=== PATIENT | female | born 1960 | race Two or more races ===

== ENCOUNTER 2018-02-27 14:05 | Inpatient (IN) | payer MEDICARE, OTHER ==
[~2018-02-27] VITALS: Ht 162.6 cm; Wt 123.4 kg
--- NOTE | 2018-02-27 14:18 | Emergency Room Report ---
History of Present Illness General Chief Complaint: Female Urogenital Problems Source: Patient, PMD Present Illness HPI C/o vaginal bleeding from care center. Pt recently increased Eliquis while admitted at [facility] for new PE. Pt had been on same for DVT. Pt complains of lower abdominal pain. NO other complaints. Per PCP, pt with recent Lactobacillus in blood culture at [facility]. Patient History Past Medical History: see triage record Pertinent Family History: none Social History: Denies: smoking, alcohol use, drug use Last Menstrual Period: n/a Nursing Documentation-PMH Hx Hypertension: Yes Hx Asthma: Yes Hx Gastrointestinal Problems: Yes - GERD, dyphagia Review of Systems Constitutional: Reports: no symptoms; Denies: see HPI, chills, sweats, fever, malaise, weakness, other Eye: Denies: no symptoms, see HPI, eye pain, blurred vision, tearing, double vision, nose pain, nose congestion, acuity changes, discharge, other Respiratory: Denies: no symptoms, see HPI, cough, orthopnea, shortness of breath, stridor, wheezing, CHIANG, sputum, other Cardiovascular: Denies: no symptoms, see HPI, chest pain, edema, palpitations, syncope, PND, other Gastrointestinal: Reports: see HPI Genitourinary: Reports: see HPI Musculoskeletal: Denies: no symptoms, see HPI, back pain, gout, joint pain, joint swelling, muscle pain, muscle stiffness, other Skin: Denies: no symptoms, see HPI, rash, change in color, change in hair/nails , dryness, lesions, other Psychiatric: Denies: no symptoms, see HPI, prior hx, anxiety, depressed feelings, emotional problems, SI, HI, hallucinations, other Neurological: Denies: no symptoms, see HPI, headache, numbness, paresthesia, seizure, tingling, tremors, focal weakness, syncope, dizziness, other Allergic: Denies: no symptoms, see HPI, urticaria, hay fever, other Physical Exam Vital Signs Date Time Temp Pulse Resp B/P (MAP) Pulse Ox O2 Delivery O2 Flow Rate FiO2 02/27/18 13:45 97.7 94 18 98/68 97 Room Air 97.7 Sp02 EP Interpretation: reviewed, normal General Appearance: no apparent distress, alert, GCS 15, non-toxic Head: normocephalic, atraumatic Eyes: bilateral eye normal inspection, bilateral eye PERRL ENT: hearing grossly normal, normal pharynx, no angioedema, normal voice Neck: full range of motion, supple/symm/no masses Respiratory: chest non-tender, lungs clear, normal breath sounds, speaking full sentences Cardiovascular #1: regular rate, rhythm, no edema Gastrointestinal: normal inspection, normal bowel sounds, no guarding, no rebound, tenderness - mild TTP lower abd Genitourinary: ext genitalia/vag normal, other - moderate blood in vault without obvious source. No active bleeding. Musculoskeletal: back normal, gait/station normal, normal range of motion, non- tender, calf tenderness Neurologic: alert, responsive, motor strength/tone normal, sensory intact, speech normal Skin: normal color, no rash, warm/dry, well hydrated Lymphatic: no adenopathy Medical Decision Making Diagnostic Impression: Primary Impression: vaginal bleding Additional Impression: Positive blood culture ER Course Pt without obvious source of bleeding but likely related to increase of Eliquis. Pt requires admission to monitor this and also for monitoring of her positive blood cultures from [facility]. Laboratory Tests Test 02/27/18 15:55 02/27/18 15:56 White Blood Count 10.8 K/UL (4.8-10.8) Red Blood Count 4.25 M/UL (4.20-5.40) Hemoglobin 11.2 G/DL (12.0-16.0) L Hematocrit 33.5 % (37.0-47.0) L Mean Corpuscular Volume 79 FL (80-99) L Mean Corpuscular Hemoglobin 26.2 PG (27.0-31.0) L Mean Corpuscular Hemoglobin Concent 33.3 G/DL (32.0-36.0) Red Cell Distribution Width 17.4 % (11.6-14.8) H Platelet Count 233 K/UL (150-450) Mean Platelet Volume 6.0 FL (6.5-10.1) L Neutrophils (%) (Auto) 69.6 % (45.0-75.0) Lymphocytes (%) (Auto) 21.5 % (20.0-45.0) Monocytes (%) (Auto) 7.8 % (1.0-10.0) Eosinophils (%) (Auto) 0.2 % (0.0-3.0) Basophils (%) (Auto) 0.9 % (0.0-2.0) Prothrombin Time 14.6 SEC (9.30-11.50) H Prothromb Time International Ratio 1.4 (0.9-1.1) H Activated Partial Thromboplast Time 35 SEC (23-33) H Sodium Level 141 MMOL/L (136-145) Potassium Level 3.5 MMOL/L (3.5-5.1) Chloride Level 110 MMOL/L (98-107) H Carbon Dioxide Level 27 MMOL/L (21-32) Anion Gap 4 mmol/L (5-15) L Blood Urea Nitrogen 7 mg/dL (7-18) Creatinine 0.6 MG/DL (0.55-1.30) Estimat Glomerular Filtration Rate > 60 mL/min (>60) Glucose Level 94 MG/DL (74-106) Calcium Level 7.5 MG/DL (8.5-10.1) L Total Bilirubin 0.6 MG/DL (0.2-1.0) Aspartate Amino Transf (AST/SGOT) 22 U/L (15-37) Alanine Aminotransferase (ALT/SGPT) 25 U/L (12-78) Alkaline Phosphatase 91 U/L (46-116) Total Protein 5.3 G/DL (6.4-8.2) L Albumin 1.4 G/DL (3.4-5.0) L Globulin 3.9 g/dL Albumin/Globulin Ratio 0.4 (1.0-2.7) L Lipase 65 U/L (73-393) L Urine Color Pale yellow Urine Appearance Cloudy Urine pH 6 (4.5-8.0) Urine Specific [place] 1.030 (1.005-1.035) Urine Protein 2+ (NEGATIVE) H Urine Glucose (UA) Negative (NEGATIVE) Urine Ketones Negative (NEGATIVE) Urine Occult Blood 5+ (NEGATIVE) H Urine Nitrite Negative (NEGATIVE) Urine Bilirubin Negative (NEGATIVE) Urine Urobilinogen Normal MG/DL (0.0-1.0) Urine Leukocyte Esterase 2+ (NEGATIVE) H Urine RBC Tntc /HPF (0 - 2) H Urine WBC 10-15 /HPF (0 - 2) H Urine Squamous Epithelial Cells Few /LPF (NONE/OCC) Urine Bacteria Moderate /HPF (NONE) H CT/MRI/US Diagnostic Results CT/MRI/US Diagnostic Results : Impression no acute findings. see report for other findings Last Vital Signs Date Time Temp Pulse Resp B/P (MAP) Pulse Ox O2 Delivery O2 Flow Rate FiO2 02/27/18 13:45 97.7 94 18 98/68 97 Room Air 97.7 Disposition: ADMITTED INPATIENT TRUNG STEPHEN Feb 27, 2018 14:18
[2018-02-27 15:33] VITALS: BP 98/68
[2018-02-27 16:03] LABS: BASOPHILS % (AUTO) 0.9 % (0.0-2.0); EOSINOPHILS % (AUTO) 0.2 % (0.0-3.0); HEMATOCRIT 33.5 % (37.0-47.0); HEMOGLOBIN 11.2 G/DL (12.0-16.0); LYMPHOCYTES % (AUTO) 21.5 % (20.0-45.0); MEAN CORPUSCULAR VOLUME 79 FL (80-99); MONOCYTES % (AUTO) 7.8 % (1.0-10.0); NEUTROPHILS % (AUTO) 69.6 % (45.0-75.0); PLATELET COUNT 233 K/UL (150-450); RED BLOOD COUNT 4.25 M/UL (4.20-5.40); RED CELL DISTRIBUTION WIDTH 17.4 % (11.6-14.8); WHITE BLOOD COUNT 10.8 K/UL (4.8-10.8)
[2018-02-27 16:07] LABS: APPEARANCE,URINE CLOUDY; BILIRUBIN, URINE NEGATIVE (NEGATIVE); COLOR,URINE PALE YELLOW; GLUCOSE, URINE (UA) NEGATIVE (NEGATIVE); KETONES,URINE NEGATIVE (NEGATIVE); LEUKOCYTE ESTERASE ,URINE 2+ (NEGATIVE); NITRITE,URINE NEGATIVE (NEGATIVE); PH,URINE 6 (4.5-8.0); PROTEIN,URINE 2+ (NEGATIVE); UROBILINOGEN,URINE NORMAL MG/DL (0.0-1.0)
[2018-02-27 16:15] LABS: ANION GAP 4 mmol/L (5-15); BLOOD UREA NITROGEN 7 mg/dL (7-18); CALCIUM 7.5 MG/DL (8.5-10.1); CARBON DIOXIDE 27 MMOL/L (21-32); CHLORIDE 110 MMOL/L (98-107); CREATININE 0.6 MG/DL (0.55-1.30); POTASSIUM 3.5 MMOL/L (3.5-5.1); SODIUM 141 MMOL/L (136-145)
[2018-02-27 16:17] LABS: INR 1.4 (0.9-1.1)
[2018-02-27 16:20] LABS: ALANINE AMINOTRANSFERASE 25 U/L (12-78); ALBUMIN 1.4 G/DL (3.4-5.0); ALBUMIN/GLOBULIN RATIO 0.4 (1.0-2.7); ALKALINE PHOSPHATASE 91 U/L (46-116); ASPARTATE AMINO TRANSFERASE 22 U/L (15-37); BILIRUBIN,TOTAL 0.6 MG/DL (0.2-1.0)
--- NOTE | 2018-02-27 17:02 | Diagnostic Imaging Report ---
Indication: Abdominal pain Technique: Continuous helical transaxial imaging of the abdomen and pelvis was obtained from the lung bases to the pubic symphysis. No intravenous contrast was administered. Coronal 2-D reformats were also obtained. Automatic Exposure Control was utilized. Total Dose length Product (DLP): 1003.[address] Dose Index Volume (CTDIvol): 19.75 mGy Comparison: none Findings: The lung bases are clear. The liver is hypodense consistent with fatty infiltration. Gallstones are suspected. There is a fatty containing mass centered about the ascending colon probably a intramural lipoma and having approximate measurement of 3.5 cm. The appendix is seen and appears normal. There are diverticula throughout the colon. There is no definite evidence of acute diverticulitis. Uterus is noted. No free fluid or free air identified. Within the right lateral aspect of the abdominal wall just above the right iliac crest there is a ovoid fat-containing tumor measuring 8 x 4.5 cm. Consistent with an intramuscular lipoma. There is no nephrolithiasis or hydronephrosis. Several metallic structures noted in the abdomen presumably from previous surgery. IMPRESSION: Cholelithiasis. Correlate clinically for cholecystitis. 3.5 cm lipoma suspected involving the wall the cecum. 8 x 4.5 cm lipoma involving right lateral abdominal wall musculature. Previous abdominal surgery. Colonic diverticulosis. Fatty liver Limited study due to lack of intravenous contrast. The CT scanner at [facility] is accredited by the [employer] and the scans are performed using dose optimization techniques as appropriate to a performed exam including Automatic Exposure control.
[2018-02-27 19:25] VITALS: BP 103/72
[2018-02-27] MEDS ORDERED: PROPRANOLOL HCL20 MG ORAL (19:33)
[2018-02-27] MEDS ORDERED: FUROSEMIDE20 M1 ORAL (19:33)
[2018-02-27 20:54] VITALS: BP 105/68
[2018-02-27 21:50] VITALS: BP 114/69
[2018-02-27] MEDS ORDERED: Acetaminophen 500mg (ES) tab ORAL PRN (22:15)
[2018-02-27] MEDS: Propranolol 40mg tab ORAL SCH (22:30)
[2018-02-27] MEDS: Piperacillin/Tazobactam 3.375 GM in D5W 110 ML IVPB SCH (22:52)
[2018-02-28] VITALS (14 sets, daily range): BP systolic 98–132; BP diastolic 56–76
[2018-02-28] MEDS ORDERED: Phytonadione 10 MG in D5W 55 ML IVPB ONE (04:45)
[2018-02-28] MEDS ORDERED: Phytonadione 10 mg/mL 1ml amp SUBQ ONE (05:00)
[2018-02-28] MEDS: Piperacillin/Tazobactam 3.375 GM in D5W 110 ML IVPB SCH ×3 (05:28→22:02)
[2018-02-28 06:46] LABS: BASOPHILS % (AUTO) 0.7 % (0.0-2.0); EOSINOPHILS % (AUTO) 0.3 % (0.0-3.0); HEMATOCRIT 30.3 % (37.0-47.0); HEMOGLOBIN 9.8 G/DL (12.0-16.0); LYMPHOCYTES % (AUTO) 17.9 % (20.0-45.0); MEAN CORPUSCULAR VOLUME 81 FL (80-99); MONOCYTES % (AUTO) 8.6 % (1.0-10.0); NEUTROPHILS % (AUTO) 72.4 % (45.0-75.0); PLATELET COUNT 241 K/UL (150-450); RED BLOOD COUNT 3.75 M/UL (4.20-5.40); RED CELL DISTRIBUTION WIDTH 17.3 % (11.6-14.8); WHITE BLOOD COUNT 9.6 K/UL (4.8-10.8)
[2018-02-28 06:54] LABS: ALANINE AMINOTRANSFERASE 23 U/L (12-78); ALBUMIN 1.3 G/DL (3.4-5.0); ALBUMIN/GLOBULIN RATIO 0.4 (1.0-2.7); ALKALINE PHOSPHATASE 82 U/L (46-116); ANION GAP 5 mmol/L (5-15); ASPARTATE AMINO TRANSFERASE 21 U/L (15-37); BILIRUBIN,TOTAL 0.7 MG/DL (0.2-1.0); BLOOD UREA NITROGEN 7 mg/dL (7-18); CALCIUM 7.3 MG/DL (8.5-10.1); CARBON DIOXIDE 31 MMOL/L (21-32); CHLORIDE 107 MMOL/L (98-107); CREATININE 0.7 MG/DL (0.55-1.30); POTASSIUM 3.7 MMOL/L (3.5-5.1); SODIUM 143 MMOL/L (136-145)
[2018-02-28 07:35] LABS: FERRITIN 237 NG/ML (8-388); LACTATE DEHYDROGENASE 345 U/L (81-234)
[2018-02-28 07:42] LABS: % IRON SATURATION 58 % (15-50); IRON 42 ug/dL (50-175); TOTAL IRON BINDING CAPACITY 73 ug/dL (250-450)
[2018-02-28 08:19] LABS: INR 1.3 (0.9-1.1)
[2018-02-28] MEDS: Propranolol 40mg tab ORAL SCH ×3 (09:00→18:00)
[2018-02-28] MEDS ORDERED: Lidocaine 1% Plain 30 ml INJ PRN (10:00)
--- NOTE | 2018-02-28 10:41 | Consultation ---
Consult Note Consult Note GYNECOLOGY CONSULT NOTE CC: Vaginal bleeding HPI: Ms. Sparks is a 57yo admitted from the ED with vaginal bleeding and positive blood cultures for lactobacillus. She recently increased her dose of Eliquis for new dx of PE, and was on it previously for DVT. She reports the bleeding has been intermittent, but this is not her normal period. LMP 02/10 or . She still menstruates monthly. The bleeding began after she increased the dose of Eliquis. At times it is heavy, but it will stop and start at random. No pelvic pain. PMH: HTN, DVT dx 1-2mo ago, PE dx 1-2w ago PSH: section 33y ago, no other surgical hx OBHx: - C/S x 1 GYNHx: Last Pap 1y ago, was seen by MANAGER ARCHITECTURAL at [facility] 2-3mo ago but no Pap done. No known hx of abnl Pap, fibroids, or cysts MEDS: Inderall, B6, Lasix, Potassium, ASA (not taking), Eliquis ALLERGIES: NKDA SOCHx: Lives on her own, was working at a [employer], stopped working 1 month ago FAMHx: Paternal side of the family with hx of VTE, VA, CVA, asthma but no malignancy. Maternal side with HTN VITALS: Tmax 98.8, BP 101/56, P 101, RR 17, O2 96-99% RA EXAM: Gen: NAD, morbidly obese HEENT: OP clear Neuro: CN 2-12 intact grossly CV: Tachycardic to low 100s Pulm: Mild increased work of breathing but no dyspnea and able to speak in full sentences Abd: Soft, obese, TTP RLQ > LLQ Pelvic: Perineum with moderate to large amount of dark blood, new bleeding per RN MSK: FROM LABS: Test 02/27/18 15:55 02/27/18 15:56 02/28/18 05:35 White Blood Count 10.8 K/UL (4.8-10.8) 9.6 K/UL (4.8-10.8) Red Blood Count 4.25 M/UL (4.20-5.40) 3.75 M/UL (4.20-5.40) Hemoglobin 11.2 G/DL (12.0-16.0) 9.8 G/DL (12.0-16.0) Hematocrit 33.5 % (37.0-47.0) 30.3 % (37.0-47.0) Mean Corpuscular Volume 79 FL (80-99) 81 FL (80-99) Mean Corpuscular Hemoglobin 26.2 PG (27.0-31.0) 26.2 PG (27.0-31.0) Mean Corpuscular Hemoglobin Concent 33.3 G/DL (32.0-36.0) 32.5 G/DL (32.0-36.0) Red Cell Distribution Width 17.4 % (11.6-14.8) 17.3 % (11.6-14.8) Platelet Count 233 K/UL (150-450) 241 K/UL (150-450) Mean Platelet Volume 6.0 FL (6.5-10.1) 5.9 FL (6.5-10.1) Neutrophils (%) (Auto) 69.6 % (45.0-75.0) 72.4 % (45.0-75.0) Lymphocytes (%) (Auto) 21.5 % (20.0-45.0) 17.9 % (20.0-45.0) Monocytes (%) (Auto) 7.8 % (1.0-10.0) 8.6 % (1.0-10.0) Eosinophils (%) (Auto) 0.2 % (0.0-3.0) 0.3 % (0.0-3.0) Basophils (%) (Auto) 0.9 % (0.0-2.0) 0.7 % (0.0-2.0) Prothrombin Time 14.6 SEC (9.30-11.50) 13.2 SEC (9.30-11.50) Prothromb Time International Ratio 1.4 (0.9-1.1) 1.3 (0.9-1.1) Activated Partial Thromboplast Time 35 SEC (23-33) Sodium Level 141 MMOL/L (136-145) 143 MMOL/L (136-145) Potassium Level 3.5 MMOL/L (3.5-5.1) 3.7 MMOL/L (3.5-5.1) Chloride Level 110 MMOL/L (98-107) 107 MMOL/L (98-107) Carbon Dioxide Level 27 MMOL/L (21-32) 31 MMOL/L (21-32) Anion Gap 4 mmol/L (5-15) 5 mmol/L (5-15) Blood Urea Nitrogen 7 mg/dL (7-18) 7 mg/dL (7-18) Creatinine 0.6 MG/DL (0.55-1.30) 0.7 MG/DL (0.55-1.30) Estimat Glomerular Filtration Rate > 60 mL/min (>60) > 60 mL/min (>60) Glucose Level 94 MG/DL (74-106) 86 MG/DL (74-106) Calcium Level 7.5 MG/DL (8.5-10.1) 7.3 MG/DL (8.5-10.1) Total Bilirubin 0.6 MG/DL (0.2-1.0) 0.7 MG/DL (0.2-1.0) Aspartate Amino Transf (AST/SGOT) 22 U/L (15-37) 21 U/L (15-37) Alanine Aminotransferase (ALT/SGPT) 25 U/L (12-78) 23 U/L (12-78) Alkaline Phosphatase 91 U/L (46-116) 82 U/L (46-116) Total Protein 5.3 G/DL (6.4-8.2) 4.9 G/DL (6.4-8.2) Albumin 1.4 G/DL (3.4-5.0) 1.3 G/DL (3.4-5.0) Globulin 3.9 g/dL 3.6 g/dL Albumin/Globulin Ratio 0.4 (1.0-2.7) 0.4 (1.0-2.7) Lipase 65 U/L (73-393) Urine Color Pale yellow Urine Appearance Cloudy Urine pH 6 (4.5-8.0) Urine Specific [place] 1.030 (1.005-1.035) Urine Protein 2+ (NEGATIVE) Urine Glucose (UA) Negative (NEGATIVE) Urine Ketones Negative (NEGATIVE) Urine Occult Blood 5+ (NEGATIVE) Urine Nitrite Negative (NEGATIVE) Urine Bilirubin Negative (NEGATIVE) Urine Urobilinogen Normal MG/DL (0.0-1.0) Urine Leukocyte Esterase 2+ (NEGATIVE) Urine RBC Tntc /HPF (0 - 2) Urine WBC 10-15 /HPF (0 - 2) Urine Squamous Epithelial Cells Few /LPF (NONE/OCC) Urine Bacteria Moderate /HPF (NONE) Differential Total Cells Counted 100 Neutrophils % (Manual) 81 % (45-75) Lymphocytes % (Manual) 15 % (20-45) Monocytes % (Manual) 4 % (1-10) Eosinophils % (Manual) 0 % (0-3) Basophils % (Manual) 0 % (0-2) Band Neutrophils 0 % (0-8) Platelet Estimate Adequate Platelet Morphology Normal Hypochromasia 2+ Anisocytosis 1+ Fibrinogen 176 mg/dL (200-400) Iron Level 42 ug/dL (50-175) Total Iron Binding Capacity 73 ug/dL (250-450) Percent Iron Saturation 58 % (15-50) Unsaturated Iron Binding 31 ug/dL (112-346) Ferritin 237 NG/ML (8-388) Lactate Dehydrogenase 345 U/L (81-234) Vitamin B12 Level 1141 PG/ML (193-986) Folate 3.1 NG/ML (8.6-58.9) Thyroid Stimulating Hormone (TSH) 0.143 uiU/mL (0.358-3.740) IMAGING: Findings: The lung bases are clear. The liver is hypodense consistent with fatty infiltration. Gallstones are suspected. There is a fatty containing mass centered about the ascending colon probably a intramural lipoma and having approximate measurement of 3.5 cm. The appendix is seen and appears normal. There are diverticula throughout the colon. There is no definite evidence of acute diverticulitis. Uterus is noted. No free fluid or free air identified. Within the right lateral aspect of the abdominal wall just above the right iliac crest there is a ovoid fat-containing tumor measuring 8 x 4.5 cm. Consistent with an intramuscular lipoma. There is no nephrolithiasis or hydronephrosis. Several metallic structures noted in the abdomen presumably from previous surgery. IMPRESSION: - Cholelithiasis. Correlate clinically for cholecystitis. - 3.5 cm lipoma suspected involving the wall the cecum. - 8 x 4.5 cm lipoma involving right lateral abdominal wall musculature. - Previous abdominal surgery. - Colonic diverticulosis. - Fatty liver - Limited study due to lack of intravenous contrast. Assessment/Plan 57yo with intermenstrual bleeding likely secondary to increased dose of anticoagulation - Recommend Provera for bleeding symptoms, will Rx 10mg qday, to be taken for 2weeks - Patient will have a withdrawal bleed when she discontinues the medication, but it can be restarted again if intermenstrual bleeding remains an issue - Anticipate bleeding will subside once Eliquis dose is decreased - Patient developing anemia, recommend iron supplementation - Recommend pelvic US to evaluate endometrium Thank you for this interesting consult Signed: MD Rut Avelar Carla M.D. Feb 28, 2018 10:41
[2018-02-28] MEDS ORDERED: Fluconazole 100mg tab ORAL SCH (11:30)
[2018-02-28] MEDS ORDERED: medroxyPROGESTERone 10mg tab ORAL SCH (11:30)
--- NOTE | 2018-02-28 12:27 | Consultation ---
History of Present Illness General Date patient seen: Feb 28, 2018 Chief Complaint: Female Urogenital Problems Present Illness HPI 57 yo female with hx of anxiety who C/o vaginal bleeding. the pt is anxious and c/o insomnia at time. The pt denied depressive sxs and was not suicidal Allergies: Coded Allergies: NO KNOWN ALLERGIES (Verified Allergy, Unknown, 02/27/18) Medication History Scheduled Furosemide* (Lasix*), 20 MG ORAL BID, (Reported) Propranolol Hcl* (Inderal*), 20 MG ORAL THREE TIMES A DAY, (Reported) Patient History Limited by: medical condition History Provided By: Patient, Medical Record, PMD Healthcare decision maker N Resuscitation status Advanced Directive on File Past Medical/Surgical History Past Medical/Surgical History: (1) Positive blood culture (2) Vaginal bleeding Review of Systems Psychiatric: Reports: prior hx, anxiety, depressed feelings, emotional problems Physical Exam General Appearance: no apparent distress, alert Neurologic: oriented x 3, responsive, depressed affect Last 24 Hour Vital Signs Date Time Temp Pulse Resp B/P (MAP) Pulse Ox O2 Delivery O2 Flow Rate FiO2 02/28/18 09:25 101 101/56 (71) 02/28/18 09:00 101 101/56 02/28/18 08:00 98.0 98 17 98/56 (70) 97 98.0 02/28/18 04:00 98.7 89 18 101/59 (73) 99 98.7 02/28/18 00:00 98.8 93 18 100/56 (71) 96 98.8 02/27/18 22:30 82 108/65 02/27/18 22:00 Room Air 02/27/18 21:50 98.2 92 20 114/69 (84) 98 98.2 02/27/18 21:15 97.8 101 16 105/68 96 Room Air 97.8 02/27/18 20:54 97.8 101 16 105/68 96 Room Air 97.8 02/27/18 19:25 97.9 94 16 103/72 95 Room Air 97.9 02/27/18 15:33 97.7 88 18 98/68 97 Room Air 97.7 02/27/18 13:45 97.7 94 18 98/68 97 Room Air 97.7 Intake and Output 02/27/18 02/28/18 19:00 07:00 Intake Total 257.5 ml Balance 257.5 ml Intake Oral 120 ml IV Total 137.5 ml # Voids 2 Laboratory Tests Test 02/27/18 15:55 02/27/18 15:56 02/28/18 05:35 White Blood Count 10.8 K/UL (4.8-10.8) 9.6 K/UL (4.8-10.8) Red Blood Count 4.25 M/UL (4.20-5.40) 3.75 M/UL (4.20-5.40) L Hemoglobin 11.2 G/DL (12.0-16.0) L 9.8 G/DL (12.0-16.0) L Hematocrit 33.5 % (37.0-47.0) L 30.3 % (37.0-47.0) L Mean Corpuscular Volume 79 FL (80-99) L 81 FL (80-99) Mean Corpuscular Hemoglobin 26.2 PG (27.0-31.0) L 26.2 PG (27.0-31.0) L Mean Corpuscular Hemoglobin Concent 33.3 G/DL (32.0-36.0) 32.5 G/DL (32.0-36.0) Red Cell Distribution Width 17.4 % (11.6-14.8) H 17.3 % (11.6-14.8) H Platelet Count 233 K/UL (150-450) 241 K/UL (150-450) Mean Platelet Volume 6.0 FL (6.5-10.1) L 5.9 FL (6.5-10.1) L Neutrophils (%) (Auto) 69.6 % (45.0-75.0) 72.4 % (45.0-75.0) Lymphocytes (%) (Auto) 21.5 % (20.0-45.0) 17.9 % (20.0-45.0) L Monocytes (%) (Auto) 7.8 % (1.0-10.0) 8.6 % (1.0-10.0) Eosinophils (%) (Auto) 0.2 % (0.0-3.0) 0.3 % (0.0-3.0) Basophils (%) (Auto) 0.9 % (0.0-2.0) 0.7 % (0.0-2.0) Prothrombin Time 14.6 SEC (9.30-11.50) H 13.2 SEC (9.30-11.50) H Prothromb Time International Ratio 1.4 (0.9-1.1) H 1.3 (0.9-1.1) H Activated Partial Thromboplast Time 35 SEC (23-33) H Sodium Level 141 MMOL/L (136-145) 143 MMOL/L (136-145) Potassium Level 3.5 MMOL/L (3.5-5.1) 3.7 MMOL/L (3.5-5.1) Chloride Level 110 MMOL/L (98-107) H 107 MMOL/L (98-107) Carbon Dioxide Level 27 MMOL/L (21-32) 31 MMOL/L (21-32) Anion Gap 4 mmol/L (5-15) L 5 mmol/L (5-15) Blood Urea Nitrogen 7 mg/dL (7-18) 7 mg/dL (7-18) Creatinine 0.6 MG/DL (0.55-1.30) 0.7 MG/DL (0.55-1.30) Estimat Glomerular Filtration Rate > 60 mL/min (>60) > 60 mL/min (>60) Glucose Level 94 MG/DL (74-106) 86 MG/DL (74-106) Calcium Level 7.5 MG/DL (8.5-10.1) L 7.3 MG/DL (8.5-10.1) L Total Bilirubin 0.6 MG/DL (0.2-1.0) 0.7 MG/DL (0.2-1.0) Aspartate Amino Transf (AST/SGOT) 22 U/L (15-37) 21 U/L (15-37) Alanine Aminotransferase (ALT/SGPT) 25 U/L (12-78) 23 U/L (12-78) Alkaline Phosphatase 91 U/L (46-116) 82 U/L (46-116) Total Protein 5.3 G/DL (6.4-8.2) L 4.9 G/DL (6.4-8.2) L Albumin 1.4 G/DL (3.4-5.0) L 1.3 G/DL (3.4-5.0) L Globulin 3.9 g/dL 3.6 g/dL Albumin/Globulin Ratio 0.4 (1.0-2.7) L 0.4 (1.0-2.7) L Lipase 65 U/L (73-393) L Urine Color Pale yellow Urine Appearance Cloudy Urine pH 6 (4.5-8.0) Urine Specific [place] 1.030 (1.005-1.035) Urine Protein 2+ (NEGATIVE) H Urine Glucose (UA) Negative (NEGATIVE) Urine Ketones Negative (NEGATIVE) Urine Occult Blood 5+ (NEGATIVE) H Urine Nitrite Negative (NEGATIVE) Urine Bilirubin Negative (NEGATIVE) Urine Urobilinogen Normal MG/DL (0.0-1.0) Urine Leukocyte Esterase 2+ (NEGATIVE) H Urine RBC Tntc /HPF (0 - 2) H Urine WBC 10-15 /HPF (0 - 2) H Urine Squamous Epithelial Cells Few /LPF (NONE/OCC) Urine Bacteria Moderate /HPF (NONE) H Differential Total Cells Counted 100 Neutrophils % (Manual) 81 % (45-75) H Lymphocytes % (Manual) 15 % (20-45) L Monocytes % (Manual) 4 % (1-10) Eosinophils % (Manual) 0 % (0-3) Basophils % (Manual) 0 % (0-2) Band Neutrophils 0 % (0-8) Platelet Estimate Adequate Platelet Morphology Normal Hypochromasia 2+ Anisocytosis 1+ Reticulocyte Count 2.4 % (0.0-2.0) H Haptoglobin Pending Fibrinogen 176 mg/dL (200-400) L Iron Level 42 ug/dL (50-175) L Total Iron Binding Capacity 73 ug/dL (250-450) L Percent Iron Saturation 58 % (15-50) H Unsaturated Iron Binding 31 ug/dL (112-346) L Ferritin 237 NG/ML (8-388) Lactate Dehydrogenase 345 U/L (81-234) H Carcinoembryonic Antigen Pending Vitamin B12 Level 1141 PG/ML (193-986) H Folate 3.1 NG/ML (8.6-58.9) L Homocystine Pending Thyroid Stimulating Hormone (TSH) 0.143 uiU/mL (0.358-3.740) Microbiology Date/Time Source Procedure Growth Status 02/27/18 15:56 Urine,Clean Catch Urine Culture - Preliminary Resulted Height (Feet): 5 Height (Inches): 4.00 Weight (Pounds): 277 Medications Current Medications Medications (Trade) Dose Ordered Sig/Leah Route PRN Reason Start Time Stop Time Status Last Admin Dose Admin Acetaminophen (Tylenol) 500 mg Q4H PRN ORAL Mild Pain/Temp > 100.5 02/27/18 22:15 03/29/18 22:14 Fluconazole (Diflucan) 100 mg DAILY ORAL 03/01/18 09:00 03/08/18 08:59 Fluconazole (Diflucan) 100 mg ONCE ORAL 02/28/18 11:30 02/28/18 12:30 02/28/18 11:45 Folic Acid (Folate) 1 mg DAILY ORAL 02/28/18 09:00 03/30/18 08:59 02/28/18 09:31 Furosemide (Lasix) 20 mg BID ORAL 02/28/18 09:00 03/30/18 08:59 Lidocaine HCl (Xylocaine 1% 30ml) 30 ml NOW PRN INJ Radiology Procedure 02/28/18 10:00 03/03/18 09:59 Medroxyprogesterone Acetate (Provera) 10 mg DAILY ORAL 03/01/18 09:00 03/31/18 08:59 Medroxyprogesterone Acetate (Provera) 10 mg ONCE ORAL 02/28/18 11:30 02/28/18 12:30 02/28/18 11:45 Piperacillin Sod/ Tazobactam Sod 3.375 gm/Dextrose 110 ml @ 27.5 mls/hr EVERY 8 HOURS IVPB 02/27/18 22:15 03/04/18 22:14 02/28/18 05:28 Propranolol HCl (Inderal) 20 mg THREE TIMES A DAY ORAL 02/27/18 22:30 03/29/18 22:29 Assessment/Plan Assessment/Plan Anxiety d/o depression ativan prn Nida Santiago MD Feb 28, 2018 12:27
[2018-02-28] MEDS ORDERED: LORazepam 1mg tab ORAL PRN (12:30)
[2018-02-28] MEDS ORDERED: Heparin 2000 units/Ns 1000ml INJ SCH (16:00)
--- NOTE | 2018-02-28 16:11 | Pre-Procedure Note/Attestation ---
Pre-Procedure Note/Attestation Complete Prior to Procedure Planned Procedure: not applicable Procedure Narrative: IVC filter placement Indications for Procedure Pre-Operative Diagnosis: DVT with PE despite anticoagulation and now with significant intermenstrual bleeding. Attestation I attest that I discussed the nature of the procedure; its benefits; risks and complications; and alternatives (and the risks and benefits of such alternatives ), prior to the procedure, with the patient (or the patient's legal telephone services sales representative). Specifically explained risks vs benefits of permanent vs retrievable filters. Patient elected retrievable filter. Need for followup for possible filter removal was stressed. I attest that I re-evaluated the patient just prior to the surgery and that there has been no change in the patient's H&P, except as documented below: Colton Tavera M.D. Feb 28, 2018 16:11
--- NOTE | 2018-02-28 18:27 | Diagnostic Imaging Report ---
Indications: Deep venous thrombosis but developed embolism on anticoagulation. Now with contraindication to anticoagulation (significant vaginal bleeding). Request made for retrievable IVC filter placement. Technique: Informed consent obtained prior to commencement of the procedure, which point the risks and benefits of filter placement were discussed at length with the patient, including the risks versus benefits of achievable versus permanent filter. Retrievable filter was elected by the patient. The need for filter retrieval as seen is medically possible was stressed. Prior noncontrast CT scan reviewed, and demonstrates no obvious caval anomalies . Total sterile technique, including sterile probe cover and sterile gel, sterile gloves, hand hygiene, hat, mask,, sterile gown, large sterile drape, and preparation with 2% chlorhexidine utilized. Local anesthesia with 1% lidocaine. Ultrasound reveals patent compressible Right internal jugular vein. Under real-time ultrasound guidance, puncture right internal jugular vein, passage of a guidewire, into the inferior vena cava, over which was passed a pigtail catheter. This was directed into the left common iliac vein, and a venogram performed using. Catheter was then withdrawn to the level of the iliac venous confluence. An inferior venacavogram performed, using machine injection of contrast. The images were reviewed. The position of the renal vein inflow determined. The catheter was then exchanged for the introducer assembly of the Argon Option IVC filter. The introducer assembly was advanced further into the inferior vena cava over a guidewire, and the guidewire and dilator were removed. The filter was passed into the into the sheath. It was then positioned into the appropriate position. The filter was then deployed by unsheathing it. The filter introducer was removed, and a followup inferior venacavogram was performed using hand injection of contrast through the sheath. The sheath was removed. Pressure held on the right neck until hemostasis was achieved. The patient tolerated procedure well, without immediate complication. Total fluoroscopy time 2.3 minutes Total dose area product 1573 dGycm2 Comparison: None Findings:Left iliac venogram demonstrates no evidence of caval anomaly. Inferior venacavogram demonstrates normal caliber inferior vena cava. Single renal veins. No intracaval thrombus. Completion inferior venacavogram demonstrates filter position with the cone of the below level of the renal vein inflow and the legs of the filter just above the level of the iliac vein confluence. Impression: Successful placement of Argon Option infrarenal inferior vena cava filter, as above. Please note that this is a retrievable filter and should be removed as soon as medically possible.
--- NOTE | 2018-02-28 18:30 | Consultation ---
DATE OF CONSULTATION: 02/28/2018 INFECTIOUS DISEASES CONSULTATION CONSULTING PHYSICIAN: Ernesto Ames M.D. REFERRING PHYSICIAN: Tory Horowitz M.D. This consultation has been done on behalf of Dr. Michael Galicia. HISTORY OF PRESENT ILLNESS: This is a 57-year-old lady with history of hypertension, asthma, GERD, DVT, pulmonary embolism, who was found to have positive blood cultures with Lactobacillus at [facility]. She has been admitted and an Infectious Diseases consultation has been obtained for antibiotics. PAST MEDICAL HISTORY: 1. History of hypertension. 2. Asthma. 3. GERD. 4. DVT. 5. Pulmonary embolism. SOCIAL HISTORY: She used to be a smoker. She does not smoke anymore. No history of alcohol or drug use. FAMILY HISTORY: Positive for heart disease in her father. REVIEW OF SYSTEMS: RESPIRATORY: No fever or chills. No cough. No shortness of breath. No chest pain. CARDIAC: No chest pain. No palpitation. No dizziness. No syncope. GASTROINTESTINAL: No nausea. No vomiting. No abdominal pain or diarrhea. She complains of vaginal bleeding. MEDICATIONS: As an inpatient, she is on lidocaine, furosemide, folic acid, Inderal, Tylenol, and Zosyn. ALLERGIES: No known drug allergies. PHYSICAL EXAMINATION: VITAL SIGNS: Temperature of 98, T-max of 98.8, pulse of 98, respirations 17, blood pressure 101/56, O2 saturation of 97%. HEENT: Pupils equally reactive to light and accommodation. Mouth appears clean without thrush. NECK: Supple. No adenopathy. No JVD. CARDIOVASCULAR: Regular rate and rhythm. No murmurs. LUNGS: Clear to auscultation bilaterally. No crackles. No wheezes. ABDOMEN: Soft and nontender. No organomegaly. EXTREMITIES: No cyanosis. No clubbing. Edema noted bilaterally. LABORATORY AND DIAGNOSTIC DATA: Labs from [facility], blood cultures from 02/19/2018 showing Lactobacillus; 02/24/2018, urine cultures grew 18,000 yeast; 02/19/2018, urine cultures grew more than 100,000 yeast; 02/20/2018, rectal swab was positive for VRE; 02/20/2018, stool for C. difficile was negative. White count at [place] 9.6, hemoglobin 9.8, hematocrit 30.3, MCV 81, platelet count of 241 with neutrophils of 72%. Sodium 143 potassium 3.7, chloride 107, bicarbonate 31, BUN 7, creatinine 0.7, glucose 86, calcium 7.3. Total bilirubin 0.7, AST 21, ALT 23, alkaline phosphatase 82, LDH 345, total protein 4.9, albumin 1.3. UA showing 10 to 15 white cells. Urine cultures are pending. CT abdomen and pelvis showing cholelithiasis. Colonic diverticulosis noted. Fatty liver noted. ASSESSMENT: 1. This is a 57-year-old lady with history of hypertension, and asthma who was asked to come in because she had lactobacillus bacteremia from [facility] and now she has vaginal bleeding. The patient does not recall taking any oral Lactobacillus. 2. Fungal urinary tract infection. 3. Hypertension. 4. Asthma. PLAN: 1. Continue Zosyn. 2. We will start the patient on fluconazole. 3. Discuss with RECOVERY COORDINATOR. 4. We will follow up cultures. I would like to thank, Dr. Horowitz for this consultation. Ernesto Ames M.D. DR: SADE JOB#: [id number] CC: Tory Horowitz M.D.; Fax#: [phone]
--- NOTE | 2018-02-28 20:30 | Consultation ---
DATE OF CONSULTATION: 02/28/2018 HEMATOLOGY/ONCOLOGY CONSULTATION CONSULTING PHYSICIAN: Clifton Nieves M.D. REQUESTING PHYSICIAN: Tory Horowitz M.D. REASON FOR CONSULTATION: Evaluation of anemia. IDENTIFYING DATA: Dear Dr. Horowitz, The patient is a pleasant 57-year-old female with past medical history, which is significant for underlying anemia, history of lipoma, and fatty liver disease. This is her first admission here, at this time presents to the hospital with vaginal bleeding to the ER of [facility], has been on Eliquis. The patient apparently has a history of pulmonary embolism as well as bilateral PE, which is extensive, potentially may need IVC filter placement. In addition, the patient has been given vitamin K. In addition, may need anti-reversal agents. PAST MEDICAL HISTORY: As noted above. PE, DVT, GERD, and dysphagia. FAMILY HISTORY: Noncontributory. SOCIAL HISTORY: No alcohol, tobacco, or illicit drug use. OB-PRESSURE DISPATCHER HISTORY: Last menstrual period not available. REVIEW OF SYSTEMS: CONSTITUTIONAL: No fevers, chills, or night sweats. SKIN: No rashes, bumps, or itching. HEENT: No headache, hearing or visual changes. BREASTS: No lumps, pain, or discharge. PULMONARY: No cough, sputum, or shortness of breath. GASTROINTESTINAL: No nausea, vomiting, or diarrhea. GENITOURINARY: No dysuria, frequency, or urgency. MUSCULOSKELETAL: No joint swelling, muscle pain, or trauma. PHYSICAL EXAMINATION: VITAL SIGNS: Reviewed. GENERAL: No acute distress. LUNGS: Decreased breath sounds. CARDIOVASCULAR: Regular rate. No S3 or S4. ABDOMEN: Soft, nontender, and nondistended. EXTREMITIES: A 1+ edema. LABORATORY DATA: Labs reviewed. WBC 9.6, hemoglobin 9.8, and platelet count 241,000. ASSESSMENT AND RECOMMENDATIONS: 1. Pulmonary embolism and deep venous thrombosis, has been on Eliquis. Eliquis at this time discontinued. She has been administered vitamin K. In addition, may consider the use of Praxbind as an antidote if the patient continues to have bleeding at this time, again consider IVC filter. We will discuss with the patient. 2. Anemia due to vaginal bleeding. Closely monitor. 3. Anemia of iron deficiency. 4. Hypoalbuminemia. Decrease p.o. intake. 5. Anemia due to folic acid deficiency. Closely monitor. 6. Gastroesophageal reflux disease. Continue proton pump inhibitor. 7. Dysphagia. 8. Monitor pulmonary team. I appreciate the consultation. Thank you for the consultation. Clifton Nieves M.D. DR: RACHELLE JOB#: [id number] CC:
--- NOTE | 2018-02-28 23:01 | Consultation ---
Consult Note Assessment/Plan DICT [id number] Evelio Lopes MD Feb 28, 2018 23:01
[2018-03-01 00:15] VITALS: BP 96/59
--- NOTE | 2018-03-01 03:00 | History and Physical Report ---
DATE OF ADMISSION: 02/27/2018 NOTE: POOR AUDIO HISTORY OF PRESENT ILLNESS: The patient was admitted for large amount of vaginal bleeding. The patient also had a positive blood culture from [facility], so we are repeating that as well. The patient complains of abdominal cramps and bleeding that started in the day. The patient also home care specialist also has been consulted to see the patient as well. PAST MEDICAL HISTORY: Significant for hypertension, , DVT and pulmonary embolism as well as obesity. PAST SURGICAL HISTORY: . ALLERGIES: No known allergies. MEDICATIONS: FAMILY HISTORY: Noncontributory. SOCIAL HISTORY: Denies history of alcohol abuse. Does have history of smoking and drug abuse. Currently lives in a shelter. REVIEW OF SYSTEMS: HEENT: Denies headaches. RESPIRATORY: Denies shortness of breath. Denies cough. CARDIOVASCULAR: No chest pain. No orthopnea. GASTROINTESTINAL: Denies vomiting or diarrhea. Does have abdominal pain, cramps, and vaginal bleeding for one day. EXTREMITIES: Denies pain. CENTRAL NERVOUS SYSTEM: Denies change in vision or speech pattern. PHYSICAL EXAMINATION: VITAL SIGNS: Temperature 97.8, pulse , and blood pressure 119/75. HEENT: PERRLA. NECK: Supple. No lymphadenopathy. CHEST: Clear to auscultation. CARDIOVASCULAR: Regular rate and rhythm. GASTROINTESTINAL: Soft and nondistended. Positive bowel sounds. Very mild abdominal tenderness. No rebound. No organomegaly. EXTREMITIES: A 1+ edema. NEUROLOGIC: . Reflexes are equal on both sides. LABORATORY DATA: WBC of 10.4, hemoglobin 11.2, and platelets 233. Sodium 141, potassium 3.5, BUN of 7, creatinine 0.6, and glucose of 94. ASSESSMENT AND PLAN: Vaginal bleeding. positive blood cultures , we are going to repeat that sepsis. Vaginal bleeding, I have asked Dr. Nieves, , and Dr. Michael Galicia to see the patient for the above-mentioned diagnoses and treatment. We will monitor for the bleeding and also we consulted Dr. Lopes for the pulmonary embolism and DVT management given the fact that the patient had vaginal bleeding, the patient most likely is going to need an IVC filter at this point as well. We will defer this decision to Dr. Lopes as well as Dr. Clifton Nieves. Tory Horowitz M.D. DR: Shreyas JOB#: [id number] CC:
[2018-03-01 04:31] VITALS: BP 98/89
--- NOTE | 2018-03-01 05:45 | Consultation ---
DATE OF CONSULTATION: 02/28/2018 NOTE: POOR AUDIO PULMONARY CONSULTATION CONSULTING PHYSICIAN: Evelio Lopes M.D. REFERRING PHYSICIAN: Tory Horowitz M.D. REASON FOR CONSULTATION: Recent bilateral PE and pneumonia. HISTORY OF PRESENT ILLNESS: The patient is a very pleasant 57-year-old female, just discharged from [facility] on 02/24/2018 during that admission. She is a nonsmoker who initially presented to [facility] with altered mental status and was noted to have a left lower extremity common femoral DVT and bilateral upper extremity PE with evidence of pulmonary hypertension, but no right ventricular strain. The pulmonary emboli was thought to be secondary to decreased mobility and obesity, but a hypercoagulable workup was sent off. There was no evidence of RV strain or hemodynamic instability endovascular thrombolytic procedure. The patient had a UTI and lactobacillus bloodstream infection. She was discharged home on Eliquis. Overnight, the patient came to [facility] with vaginal bleeding. For this reason, Eliquis was held. After discussion with , we decided to proceed with IVC filter placement. The patient herself denies any other complaint. Since coming to [facility], she is in sinus tachycardia, but afebrile. Vitals have otherwise been stable and oxygenating well on room air. Her hemoglobin on presentation was 11.2, it is currently 9.8. On the day of discharge from [facility], her hemoglobin was 10. The patient denies any chest pain, shortness of breath, nausea, vomiting, fevers, chills, headache, dizziness, or other complaints. PAST MEDICAL HISTORY: 1. Obesity. 2. Fatty liver. 3. Hypertension. 4. Asthma. 5. Bilateral PE and DVT. 6. Hypothyroidism. PAST SURGICAL HISTORY: . ALLERGIES: No known drug allergies. MEDICATIONS: Prior to admission medications reviewed. SOCIAL HISTORY: The patient is a lifelong smoker. Lives in apartment with her son. 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 Her mother and father both had heart disease and diabetes. FAMILY HISTORY: As above. REVIEW OF SYSTEMS: Negative other than the history of present illness. PHYSICAL EXAMINATION: VITAL SIGNS: Temperature 98 degrees, pulse 107, blood pressure 119/75, and respiratory rate is 18. GENERAL: This is an obese female, in no acute distress. Awake, alert, and oriented x3. HEENT: Normocephalic and atraumatic. Oropharynx is clear with moist mucous membranes. NECK: Supple without lymphadenopathy or JVD. CHEST: Clear to auscultation bilaterally. No wheezing, rales, or rhonchi. HEART: Regular rate and rhythm. No murmur, rubs, or gallops. ABDOMEN: Soft, nontender, and nondistended. EXTREMITIES: No cyanosis, clubbing, or edema. ANCILLARY DATA: White count 9.6, hemoglobin 9.8, and platelet count 241. Chemistry, sodium 140, potassium 3.3, chloride , bicarbonate 31, BUN 20, creatinine 0.7, calcium 7.3. 176. INR 1.3. Urinalysis, 2+ leukocyte esterase. Culture is pending. Records from [facility] reviewed at length by myself including CT angio of the chest, which was positive for PE bilaterally, right greater than left, dilated pulmonary artery, lobular density, nodule, left thyroid 3 cm nodule with tracheal deviation, distended stomach. Echo showed LVEF 68% and PA pressure of 48, normal size and function. ASSESSMENT: The patient is a 57-year-old female, nonsmoker, who presents at [facility] with altered mental status and noted to have bilateral lower extremity deep venous thrombosis and pulmonary embolism. Started on Eliquis, now with vaginal bleeding. Eliquis is on hold and the patient . PROBLEM LIST: 1. Vaginal bleeding in the setting of anticoagulation. 2. Recent left lower extremity common femoral DVT of bilateral right greater than left PE without evidence of RV strain. 3. Pulmonary hypertension secondary to above. 4. Asthma without evidence of exacerbation. 5. Fungal UTI. 6. Bloodstream infection. 7. Left periapical nodule. 8. Obesity. 9. Likely underlying CHUCK. 10. Multinodular goiter. 11. Fatty liver. 12. Hypertension. TREATMENT PLAN: 1. Hold anticoagulation. 2. IVC filter. 3. Follow up Hematology recommendation. 4. DIRECTOR OF AUTOMATION evaluation. 5. Antibiotics per ID. 6. Follow up cultures. 7. The patient to have a sleep study as an outpatient. Dr. Horowitz, thank you for allowing me to participate in the care of your patient. If I may be of any assistance in the future, please do not hesitate to ask. Evelio Lopes M.D. DR: SARAH JOB#: [id number] CC:
[2018-03-01] MEDS: Piperacillin/Tazobactam 3.375 GM in D5W 110 ML IVPB SCH ×2 (05:50→13:40)
[2018-03-01 08:00] VITALS: BP 124/65
[2018-03-01] MEDS: medroxyPROGESTERone 10mg tab ORAL SCH (09:19)
[2018-03-01] MEDS: Fluconazole 100mg tab ORAL SCH (09:20)
[2018-03-01] MEDS: Propranolol 40mg tab ORAL SCH ×3 (09:22→17:11)
--- NOTE | 2018-03-01 10:37 | General Progress Note ---
Assessment/Plan Status: unchanged Assessment/Plan 1. Pulmonary embolism and deep venous thrombosis, has been on Eliquis dose recently increased --> Eliquis at this time discontinued. She has been administered vitamin K. She had a inside outside sales representative bleed and therefore contraindicated --> IVC filter has been placed on 02/28/18 --> remove filter in 90 days especially after inside outside sales representative bleed resolves --> hematology clinic followup for anticoagulation --> inside outside sales representative clinic f/u for biopsy of endometrium 2. Anemia due to vaginal bleeding. Closely monitor. --> Hold off anitcoag --> inside outside sales representative followup 3. Anemia of folic acid deficiency. --> Anemia w/u has been reviewed, will trend daily. --> Hgb goal >7 --> Pt on po folic acid 4. Hypoalbuminemia. Decrease p.o. intake. 5. Anemia due to folic acid deficiency. Closely monitor. 6. Gastroesophageal reflux disease. Continue proton pump inhibitor. 7. Dysphagia. Subjective Date patient seen: Mar 01, 2018 ROS Limited/Unobtainable: Yes Hematologic/Lymphatic: Reports: anemia Allergies: Coded Allergies: NO KNOWN ALLERGIES (Verified Allergy, Unknown, 02/27/18) All Systems: reviewed and negative except above Subjective Pt resting in bed. No acute events. Vitals are stable. No resp distress. Objective Last 24 Hour Vital Signs Date Time Temp Pulse Resp B/P (MAP) Pulse Ox O2 Delivery O2 Flow Rate FiO2 03/01/18 09:22 96 124/65 03/01/18 08:00 97.4 96 19 124/65 (84) 99 97.4 03/01/18 04:31 97.6 96 18 98/89 (92) 96 97.6 03/01/18 00:15 97.6 99 18 96/59 (71) 92 97.6 02/28/18 20:00 98.0 109 20 109/67 (81) 95 98.0 02/28/18 18:00 106 112/63 02/28/18 17:05 108 21 108/67 (81) 98 02/28/18 17:00 110 22 119/66 (83) 99 02/28/18 16:55 109 22 125/69 (87) 99 02/28/18 16:50 108 22 110/73 (85) 99 02/28/18 16:45 107 22 117/69 (85) 99 02/28/18 16:40 108 22 113/76 (88) 99 02/28/18 16:35 110 22 119/75 (90) 99 02/28/18 16:04 107 20 02/28/18 13:00 104 99/57 02/28/18 12:00 97.8 104 17 99/57 (71) 96 97.8 Intake and Output 02/28/18 03/01/18 19:00 07:00 Intake Total 300 ml 110.0 ml Balance 300 ml 110.0 ml Intake Oral 300 ml IV Total 110.0 ml # Voids 2 3 # Bowel Movements 1 Laboratory Tests 03/01/18 10:15: Follicle Stimulating Hormone [Pending], Luteinizing Hormone [Pending] Height (Feet): 5 Height (Inches): 4.00 Weight (Pounds): 281 General Appearance: no apparent distress EENT: PERRL/EOMI Neck: normal alignment Cardiovascular: normal peripheral pulses Respiratory/Chest: no respiratory distress Abdomen: normal bowel sounds Clifton Nieves MD Mar 01, 2018 10:37
--- NOTE | 2018-03-01 10:38 | Diagnostic Imaging Report ---
Indication: Pelvic pain. Vaginal bleeding 57-year-old female Technique: Grayscale and duplex Doppler imaging of the pelvis performed utilizing a transabdominal scan and endovaginal scan. Comparison: None Findings: The endometrium is moderately thickened measuring 2.5 cm. Alternatively, this might represent a heterogeneous central fibroid possibly involving the endometrial canal such as a submucosal mass obscuring the endometrium. This is difficult to elucidate with certainty. There are multiple masses consistent with fibroids within the myometrium as well. Clinical evaluation by GARBAGE PICK UP WORKER is recommended. Possibility of underlying mass or endometrial hyperplasia should be considered. The uterus is globular and is retroverted. The uterus measures about 6.6 x 6.6 x 5.6 cm. The right ovary is 2 x 1.3 cm. Left ovary is enlarged measuring 6 x 3.2 x 4.6 cm. Dopplerable blood flow within both ovaries noted. Note the transabdominal portion of the exam is very limited. IMPRESSION: Suggestion of multiple uterine masses likely fibroids. The central endometrial echo complex may be moderately thickened measuring 2.5 cm versus a central submucosal fibroid with obscuring of the endometrium. Further clinical evaluation by GARBAGE PICK UP WORKER is recommended. Enlarged left ovary
[2018-03-01 12:00] VITALS: BP 100/56
[2018-03-01 16:00] VITALS: BP 104/67
--- NOTE | 2018-03-01 19:00 | Pulmonology Progress Note ---
Assessment/Plan Problems: (1) Positive blood culture (2) Vaginal bleeding Assessment/Plan ASSESSMENT: The patient is a 57-year-old female, nonsmoker, who presented recently to [facility] with altered mental status and noted to have bilateral lower extremity deep venous thrombosis and pulmonary embolism, started on Eliquis, now with vaginal bleeding. Eliquis is on hold and the patient is S/P IVC filter placement PROBLEM LIST: 1. Vaginal bleeding in the setting of anticoagulation. 2. B DVT and PE S/P IVCF 03/01/18 3. Pulmonary hypertension secondary to above. 4. Asthma without evidence of exacerbation. 5. Fungal UTI. 6. Bacteremia 7. Left periapical pulmonary nodule. 8. Obesity. 9. Likely underlying CHUCK. 10. Multinodular goiter. 11. Fatty liver. 12. Hypertension. TREATMENT PLAN: 1. Hold anticoagulation. 2. S/P IVCF, to be removed in 2-3 months 3. F/U HEME and OB RECS 4. F/U CBC, monitor H&H, transfuse as needed 5. Antibiotics per ID. 6. Follow up cultures. 7. The patient to have a sleep study as an outpatient. 8. Outpatient F/U of pulmonary nodule as previously planned Evelio Lopes M.D., F.C.C.P. Subjective Allergies: Coded Allergies: NO KNOWN ALLERGIES (Verified Allergy, Unknown, 02/27/18) Subjective AFVSS, stable O2 needs, continued VB, no CBC today, no SOB, no cough, no F/C S/p IVC filter, TV US noted Objective Last 24 Hour Vital Signs Date Time Temp Pulse Resp B/P (MAP) Pulse Ox O2 Delivery O2 Flow Rate FiO2 03/01/18 17:11 84 104/67 03/01/18 16:00 97.5 84 18 104/67 (79) 97 97.5 03/01/18 13:00 81 100/56 03/01/18 12:00 97.7 81 20 100/56 (71) 95 97.7 03/01/18 09:22 96 124/65 03/01/18 08:00 97.4 96 19 124/65 (84) 99 97.4 03/01/18 04:31 97.6 96 18 98/89 (92) 96 97.6 03/01/18 00:15 97.6 99 18 96/59 (71) 92 97.6 02/28/18 20:00 98.0 109 20 109/67 (81) 95 98.0 Intake and Output 02/28/18 03/01/18 19:00 07:00 Intake Total 300 ml 110.0 ml Balance 300 ml 110.0 ml Intake Oral 300 ml IV Total 110.0 ml # Voids 2 3 # Bowel Movements 1 General Appearance: no acute distress, other - obese female HEENT: normocephalic, atraumatic, anicteric, mucous membranes moist Respiratory/Chest: chest wall non-tender, lungs clear, normal breath sounds, no respiratory distress Cardiovascular: normal peripheral pulses, normal rate, regular rhythm Abdomen: normal bowel sounds, soft, non tender, no organomegaly, non distended , no mass Extremities: no cyanosis, no clubbing, no edema Microbiology Date/Time Source Procedure Growth Status 02/27/18 15:51 Blood Blood Culture - Preliminary NO GROWTH AFTER 24 HOURS Resulted 02/27/18 15:44 Blood Blood Culture - Preliminary NO GROWTH AFTER 24 HOURS Resulted 02/27/18 15:56 Urine,Clean Catch Urine Culture - Preliminary Gram Negative Bacillus 1 Gram Positive Cocci Resulted Laboratory Tests 03/01/18 10:15: Follicle Stimulating Hormone [Pending], Luteinizing Hormone [Pending] Current Medications Medications (Trade) Dose Ordered Sig/Leah Route PRN Reason Start Time Stop Time Status Last Admin Dose Admin Acetaminophen (Tylenol) 500 mg Q4H PRN ORAL Mild Pain/Temp > 100.5 02/27/18 22:15 03/29/18 22:14 Ceftriaxone Sodium 1 gm/ Dextrose 110 ml @ 220 mls/hr Q24H IVPB 03/01/18 22:00 03/08/18 21:59 Fluconazole (Diflucan) 100 mg DAILY ORAL 03/01/18 09:00 03/08/18 08:59 03/01/18 09:20 Folic Acid (Folate) 1 mg DAILY ORAL 02/28/18 09:00 03/30/18 08:59 03/01/18 09:20 Furosemide (Lasix) 20 mg BID ORAL 02/28/18 09:00 8/9/18 08:59 03/01/18 09:20 Lidocaine HCl (Xylocaine 1% 30ml) 30 ml NOW PRN INJ Radiology Procedure 02/28/18 10:00 03/03/18 09:59 Lorazepam (Ativan) 2 mg Q6H PRN ORAL For Anxiety 02/28/18 12:30 03/07/18 12:29 Medroxyprogesterone Acetate (Provera) 10 mg DAILY ORAL 03/01/18 09:00 03/31/18 08:59 03/01/18 09:19 Propranolol HCl (Inderal) 20 mg THREE TIMES A DAY ORAL 02/27/18 22:30 03/29/18 22:29 03/01/18 09:22 Vancomycin HCl (Vanco rx to dose) 1 ea DAILY PRN MISC . 03/01/18 18:00 03/31/18 17:59 Vancomycin HCl/ Dextrose 250 ml @ 125 mls/hr ONCE ONCE IVPB 03/01/18 20:00 03/01/18 21:59 Vancomycin HCl/ Dextrose 250 ml @ 166.667 mls/hr Q12HR@0800,2000 IVPB 03/02/18 08:00 03/07/18 07:59 Evelio Lopes MD Mar 01, 2018 19:00
[2018-03-01 20:00] VITALS: BP 99/65
[2018-03-01] MEDS ORDERED: Vancomycin 1.5 GM/D5W 250ML IVPB ONE (20:00)
[2018-03-01 21:40] LABS: BASOPHILS % (AUTO) 0.9 % (0.0-2.0); EOSINOPHILS % (AUTO) 0.3 % (0.0-3.0); HEMATOCRIT 30.4 % (37.0-47.0); HEMOGLOBIN 9.6 G/DL (12.0-16.0); LYMPHOCYTES % (AUTO) 26.2 % (20.0-45.0); MEAN CORPUSCULAR VOLUME 80 FL (80-99); MONOCYTES % (AUTO) 6.9 % (1.0-10.0); NEUTROPHILS % (AUTO) 65.8 % (45.0-75.0); PLATELET COUNT 198 K/UL (150-450); RED BLOOD COUNT 3.81 M/UL (4.20-5.40); RED CELL DISTRIBUTION WIDTH 17.2 % (11.6-14.8); WHITE BLOOD COUNT 8.1 K/UL (4.8-10.8)
[2018-03-01] MEDS ORDERED: cefTRIAXone 1 GM in D5W 110 ML IVPB SCH (22:00)
--- NOTE | 2018-03-01 22:06 | General Progress Note ---
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 consult obesity anticoagulant per heme/onc and pulmonary pe and dvt ivc filter Subjective ROS Limited/Unobtainable: Yes Allergies: Coded Allergies: NO KNOWN ALLERGIES (Verified Allergy, Unknown, 02/27/18) Objective Last 24 Hour Vital Signs Date Time Temp Pulse Resp B/P (MAP) Pulse Ox O2 Delivery O2 Flow Rate FiO2 03/01/18 17:11 84 104/67 03/01/18 16:00 97.5 84 18 104/67 (79) 97 97.5 03/01/18 13:00 81 100/56 03/01/18 12:00 97.7 81 20 100/56 (71) 95 97.7 03/01/18 09:22 96 124/65 03/01/18 08:00 97.4 96 19 124/65 (84) 99 97.4 03/01/18 04:31 97.6 96 18 98/89 (92) 96 97.6 03/01/18 00:15 97.6 99 18 96/59 (71) 92 97.6 Intake and Output 02/28/18 03/01/18 19:00 07:00 Intake Total 300 ml 110.0 ml Balance 300 ml 110.0 ml Intake Oral 300 ml IV Total 110.0 ml # Voids 2 3 # Bowel Movements 1 Laboratory Tests 03/01/18 10:15: Follicle Stimulating Hormone [Pending], Luteinizing Hormone [Pending] 03/01/18 21:00: White Blood Count 8.1, Red Blood Count 3.81L, Hemoglobin 9.6L, Hematocrit 30.4L , Mean Corpuscular Volume 80, Mean Corpuscular Hemoglobin 25.3L, Mean Corpuscular Hemoglobin Concent 31.8L, Red Cell Distribution Width 17.2H, Platelet Count 198, Mean Platelet Volume 5.7L, Neutrophils (%) (Auto) 65.8, Lymphocytes (%) (Auto) 26.2, Monocytes (%) (Auto) 6.9, Eosinophils (%) (Auto) 0.3, Basophils (%) (Auto) 0.9 Height (Feet): 5 Height (Inches): 4.00 Weight (Pounds): 281 Cardiovascular: normal peripheral pulses Respiratory/Chest: lungs clear Abdomen: soft - lll Tory Horowitz MD Mar 01, 2018 22:06
[2018-03-02] VITALS: BP 99/61
[2018-03-02 04:00] VITALS: BP 98/52
[2018-03-02 08:00] VITALS: BP 127/75
[2018-03-02] MEDS ORDERED: Vancomycin 1250mg/D5W 250ml IVPB SCH (08:00)
[2018-03-02] MEDS: medroxyPROGESTERone 10mg tab ORAL SCH (09:06)
[2018-03-02] MEDS: Propranolol 40mg tab ORAL SCH ×3 (09:07→17:02)
[2018-03-02] MEDS: Fluconazole 100mg tab ORAL SCH (09:07)
--- NOTE | 2018-03-02 11:40 | Infectious Diseases Prog Note ---
"Assessment/Plan Assessment/Plan antibiotics : vancomycin iv, ceftriaxone, fluconazole A 1. lactobacillus sepsis 2. e. coli | VRE UTI 3. s/p ivc filter placement 4. vaginal bleeding 5. fungal UTI P 1. d/c vancomycin iv, ceftriaxone, fluconazole 2. start linezolid, bactrim for 7 days 3. will follow up cultures Subjective Constitutional: Denies: fever, chills Respiratory: Denies: shortness of breath, dry cough Gastrointestinal/Abdominal: Denies: nausea, vomiting, diarrhea Neurologic: Reports: other - feels dizzy Musculoskeletal: Denies: pain Allergies: Coded Allergies: NO KNOWN ALLERGIES (Verified Allergy, Unknown, 02/27/18) Objective Vital Signs Last 24 Hour Vital Signs Date Time Temp Pulse Resp B/P (MAP) Pulse Ox O2 Delivery O2 Flow Rate FiO2 03/02/18 09:07 92 127/75 03/02/18 08:00 97.7 92 20 127/75 (92) 98 97.7 03/02/18 04:00 98.3 90 18 98/52 (67) 96 98.3 03/02/18 00:00 97.9 84 18 99/61 (74) 97 97.9 03/01/18 20:00 98.7 85 18 99/65 (76) 98 98.7 03/01/18 17:11 84 104/67 03/01/18 16:00 97.5 84 18 104/67 (79) 97 97.5 03/01/18 13:00 81 100/56 03/01/18 12:00 97.7 81 20 100/56 (71) 95 97.7 Height (Feet): 5 Height (Inches): 4.00 Weight (Pounds): 275 Respiratory/Chest: lungs clear Cardiovascular: normal rate, regular rhythm, no gallop/murmur Abdomen: soft, non tender Extremities: other - + edema Microbiology Date/Time Source Procedure Growth Status 02/27/18 15:51 Blood Blood Culture - Preliminary NO GROWTH AFTER 48 HOURS Resulted 02/27/18 15:44 Blood Blood Culture - Preliminary NO GROWTH AFTER 48 HOURS Resulted 02/27/18 15:56 Urine,Clean Catch Urine Culture - Final Escherichia Coli - Esbl Enterococcus Faecium - Vre Complete 02/27/18 21:50 Rectum VRE Culture - Final Enterococcus Faecium - Vre Complete Laboratory Tests Test 03/01/18 21:00 White Blood Count 8.1 K/UL (4.8-10.8) Red Blood Count 3.81 M/UL (4.20-5.40) L Hemoglobin 9.6 G/DL (12.0-16.0) L Hematocrit 30.4 % (37.0-47.0) L Mean Corpuscular Volume 80 FL (80-99) Mean Corpuscular Hemoglobin 25.3 PG (27.0-31.0) L Mean Corpuscular Hemoglobin Concent 31.8 G/DL (32.0-36.0) L Red Cell Distribution Width 17.2 % (11.6-14.8) H Platelet Count 198 K/UL (150-450) Mean Platelet Volume 5.7 FL (6.5-10.1) L Neutrophils (%) (Auto) 65.8 % (45.0-75.0) Lymphocytes (%) (Auto) 26.2 % (20.0-45.0) Monocytes (%) (Auto) 6.9 % (1.0-10.0) Eosinophils (%) (Auto) 0.3 % (0.0-3.0) Basophils (%) (Auto) 0.9 % (0.0-2.0) Current Medications Medications (Trade) Dose Ordered Sig/Leah Route PRN Reason Start Time Stop Time Status Last Admin Dose Admin Acetaminophen (Tylenol) 500 mg Q4H PRN ORAL Mild Pain/Temp > 100.5 02/27/18 22:15 03/29/18 22:14 Ceftriaxone Sodium 1 gm/ Dextrose 110 ml @ 220 mls/hr Q24H IVPB 03/01/18 22:00 03/08/18 21:59 03/01/18 23:50 Fluconazole (Diflucan) 100 mg DAILY ORAL 03/01/18 09:00 03/08/18 08:59 03/02/18 09:07 Folic Acid (Folate) 1 mg DAILY ORAL 02/28/18 09:00 03/30/18 08:59 03/02/18 09:07 Furosemide (Lasix) 20 mg BID ORAL 02/28/18 09:00 03/30/18 08:59 03/02/18 09:07 Lidocaine HCl (Xylocaine 1% 30ml) 30 ml NOW PRN INJ Radiology Procedure 02/28/18 10:00 03/03/18 09:59 Lorazepam (Ativan) 2 mg Q6H PRN ORAL For Anxiety 02/28/18 12:30 03/07/18 12:29 Medroxyprogesterone Acetate (Provera) 10 mg DAILY ORAL 03/01/18 09:00 03/31/18 08:59 03/02/18 09:06 Propranolol HCl (Inderal) 20 mg THREE TIMES A DAY ORAL 02/27/18 22:30 03/29/18 22:29 03/02/18 09:07 Vancomycin HCl (Vanco rx to dose) 1 ea DAILY PRN MISC . 03/01/18 18:00 03/31/18 17:59 Vancomycin HCl/ Dextrose 250 ml @ 166.667 mls/hr Q12HR@0800,2000 IVPB 03/02/18 08:00 03/07/18 07:59 03/02/18 09:20 ANDERSON SHETH Mar 02, 2018 11:40"
--- NOTE | 2018-03-02 11:43 | General Progress Note ---
Assessment/Plan Status: unchanged Assessment/Plan 1. Pulmonary embolism and deep venous thrombosis, has been on Eliquis dose recently increased --> Eliquis at this time discontinued. She has been administered vitamin K. She had a chaplain resident bleed and therefore contraindicated --> IVC filter has been placed on 02/28/18 --> remove filter in 90 days especially after chaplain resident bleed resolves --> hematology clinic followup for anticoagulation --> chaplain resident clinic f/u for biopsy of endometrium 2. Anemia due to vaginal bleeding. Closely monitor. --> Hold off anitcoag --> chaplain resident followup 3. Anemia of folic acid deficiency. --> Anemia w/u has been reviewed, will trend daily. --> Hgb goal >7 --> Pt on po folic acid 4. Hypoalbuminemia. Decrease p.o. intake. 5. Anemia due to folic acid deficiency. Closely monitor. 6. Gastroesophageal reflux disease. Continue proton pump inhibitor. 7. Dysphagia. Subjective Date patient seen: Mar 02, 2018 Hematologic/Lymphatic: Reports: anemia Allergies: Coded Allergies: NO KNOWN ALLERGIES (Verified Allergy, Unknown, 02/27/18) All Systems: reviewed and negative except above Subjective Pt resting in bed. No acute events. Vitals are stable. No resp distress. Vaginal bleeding continues. Objective Last 24 Hour Vital Signs Date Time Temp Pulse Resp B/P (MAP) Pulse Ox O2 Delivery O2 Flow Rate FiO2 03/02/18 09:07 92 127/75 03/02/18 08:00 97.7 92 20 127/75 (92) 98 97.7 03/02/18 04:00 98.3 90 18 98/52 (67) 96 98.3 03/02/18 00:00 97.9 84 18 99/61 (74) 97 97.9 03/01/18 20:00 98.7 85 18 99/65 (76) 98 98.7 03/01/18 17:11 84 104/67 03/01/18 16:00 97.5 84 18 104/67 (79) 97 97.5 03/01/18 13:00 81 100/56 03/01/18 12:00 97.7 81 20 100/56 (71) 95 97.7 Intake and Output 03/01/18 03/02/18 19:00 07:00 Intake Total 532.5 ml 360 ml Balance 532.5 ml 360 ml Intake Oral 450 ml IV Total 82.5 ml 360 ml # Voids 5 3 # Bowel Movements 3 1 Laboratory Tests 03/01/18 21:00: White Blood Count 8.1, Red Blood Count 3.81L, Hemoglobin 9.6L, Hematocrit 30.4L , Mean Corpuscular Volume 80, Mean Corpuscular Hemoglobin 25.3L, Mean Corpuscular Hemoglobin Concent 31.8L, Red Cell Distribution Width 17.2H, Platelet Count 198, Mean Platelet Volume 5.7L, Neutrophils (%) (Auto) 65.8, Lymphocytes (%) (Auto) 26.2, Monocytes (%) (Auto) 6.9, Eosinophils (%) (Auto) 0.3, Basophils (%) (Auto) 0.9 Height (Feet): 5 Height (Inches): 4.00 Weight (Pounds): 275 General Appearance: no apparent distress EENT: PERRL/EOMI Neck: normal alignment Cardiovascular: normal peripheral pulses Respiratory/Chest: no respiratory distress Abdomen: soft Clifton Nieves MD Mar 02, 2018 11:43
[2018-03-02 12:00] VITALS: BP 117/73
[2018-03-02] MEDS: Bactrim-DS 1 tab ORAL SCH ×2 (12:53→17:05)
--- NOTE | 2018-03-02 13:51 | General Progress Note ---
Progress Note Progress Note GYNECOLOGY PROGRESS NOTE ID: 57yo with bilateral DVTs and recengt dx of PE, admitted with intermenstrual bleeding in the setting of anticoagulation S: Bleeding improved, patient s/p Vitamin K, Eliquis discontinued, and taking Provera. Son at bedside today. No acute issues currently. He explained to me that a UTI or blood infection prompted all of her current problems and is concerned about how many medications she is taking. O: Vitals: BP 132/61, P 75, RR 18, Tmax 98.3, O2 99% RA Exam: Gen: NAD, alert but disoriented (reports that Neptali is president) HEENT: OP clear, poor dentition CV: Reg rate Pulm: Speaking in full sentences Abd: Soft, obese, NT Perineum: No bleeding IMAGING: The endometrium is moderately thickened measuring 2.5 cm. Alternatively, this might represent a heterogeneous central fibroid possibly involving the endometrial canal such as a submucosal mass obscuring the endometrium. This is difficult to elucidate with certainty. There are multiple masses consistent with fibroids within the myometrium as well. Clinical evaluation by GROUND WOOD SUPERVISOR is recommended. Possibility of underlying mass or endometrial hyperplasia should be considered. The uterus is globular and is retroverted. The uterus measures about 6.6 x 6.6 x 5.6 cm. The right ovary is 2 x 1.3 cm. Left ovary is enlarged measuring 6 x 3.2 x 4.6 cm Dopplerable blood flow within both ovaries noted. Note the transabdominal portion of the exam is very limited. IMPRESSION: - Suggestion of multiple uterine masses likely fibroids. - The central endometrial echo complex may be moderately thickened measuring 2.5 cm versus a central submucosal fibroid with obscuring of the endometrium. - Further clinical evaluation by GROUND WOOD SUPERVISOR is recommended. - Enlarged left ovary Laboratory Tests Test 03/01/18 21:00 White Blood Count 8.1 K/UL (4.8-10.8) Red Blood Count 3.81 M/UL (4.20-5.40) L Hemoglobin 9.6 G/DL (12.0-16.0) L Hematocrit 30.4 % (37.0-47.0) L Mean Corpuscular Volume 80 FL (80-99) Mean Corpuscular Hemoglobin 25.3 PG (27.0-31.0) L Mean Corpuscular Hemoglobin Concent 31.8 G/DL (32.0-36.0) L Red Cell Distribution Width 17.2 % (11.6-14.8) H Platelet Count 198 K/UL (150-450) Mean Platelet Volume 5.7 FL (6.5-10.1) L Neutrophils (%) (Auto) 65.8 % (45.0-75.0) Lymphocytes (%) (Auto) 26.2 % (20.0-45.0) Monocytes (%) (Auto) 6.9 % (1.0-10.0) Eosinophils (%) (Auto) 0.3 % (0.0-3.0) Basophils (%) (Auto) 0.9 % (0.0-2.0) A/P: 57yo premenopausal admitted with vaginal bleeding in the setting of anticoagulation, now s/p discontinuation of Eliquis and administration of Vit K as well as IVC filter placement. Currently on Provera with improvement of bleeding symptoms. - Continue Provera x 2 weeks, expect withdrawal bleeding 3-7d s/p discontinuation of Provera - Would recommend outpatient endometrial biopsy, given her new bleeding symptoms and findings on ultrasound - Patient can follow up with me once she is able to consent to the procedure, hopefully in the next 2-3 weeks (for planned endometrial biopsy) - If bleeding recurs, OK to restart Provera as outpatient in addition to follow up with GROUND WOOD SUPERVISOR - Consider PT for mobility issues Thank you for allowing me to participate in this patient's care. Signed: MD Rut Avelar Carla M.D. Mar 02, 2018 13:51
[2018-03-02 16:00] VITALS: BP 108/73
--- NOTE | 2018-03-02 17:00 | Pulmonology Progress Note ---
Assessment/Plan Problems: (1) Positive blood culture (2) Vaginal bleeding Assessment/Plan ASSESSMENT: The patient is a 57-year-old female, nonsmoker, who presented recently to [facility] with altered mental status and noted to have bilateral lower extremity deep venous thrombosis and pulmonary embolism, started on Eliquis, now with vaginal bleeding. Eliquis is on hold and the patient is S/P IVC filter placement PROBLEM LIST: 1. Vaginal bleeding in the setting of anticoagulation and likely uterine fibroids, resovled with holding A/C and starting Provera 2. B DVT and PE S/P IVCF 03/01/18 3. Pulmonary hypertension secondary to above. 4. Asthma without evidence of exacerbation. 5. Fungal UTI. 6. Bacteremia 7. Left periapical pulmonary nodule. 8. Obesity. 9. Likely underlying CHUCK. 10. Multinodular goiter. 11. Fatty liver. 12. Hypertension. TREATMENT PLAN: 1. Hold anticoagulation. 2. S/P IVCF, to be removed in 2-3 months 3. F/U HEME and OB RECS ---> Continue Provera x 2 weeks, O/P EBx 4. F/U CBC, monitor H&H, transfuse as needed 5. Antibiotics per ID. 6. Follow up cultures. 7. The patient to have a sleep study as an outpatient. 8. Outpatient F/U of pulmonary nodule as previously planned Evelio Lopes M.D., F.C.C.P. Subjective Allergies: Coded Allergies: NO KNOWN ALLERGIES (Verified Allergy, Unknown, 02/27/18) Subjective AFVSS, stable O2 needs, started on Provera --> no VB, H/H stable, no SOB, no cough, no F/C Objective Last 24 Hour Vital Signs Date Time Temp Pulse Resp B/P (MAP) Pulse Ox O2 Delivery O2 Flow Rate FiO2 03/02/18 16:00 97.7 80 21 108/73 (85) 98 97.7 03/02/18 12:54 75 132/61 03/02/18 12:00 98.1 80 18 117/73 (88) 99 98.1 03/02/18 09:07 92 127/75 03/02/18 08:00 97.7 92 20 127/75 (92) 98 97.7 03/02/18 04:00 98.3 90 18 98/52 (67) 96 98.3 03/02/18 00:00 97.9 84 18 99/61 (74) 97 97.9 03/01/18 20:00 98.7 85 18 99/65 (76) 98 98.7 03/01/18 17:11 84 104/67 Intake and Output 03/01/18 03/02/18 19:00 07:00 Intake Total 532.5 ml 360 ml Balance 532.5 ml 360 ml Intake Oral 450 ml IV Total 82.5 ml 360 ml # Voids 5 3 # Bowel Movements 3 1 General Appearance: no acute distress HEENT: normocephalic, atraumatic, anicteric, mucous membranes moist Respiratory/Chest: chest wall non-tender, lungs clear, normal breath sounds, no respiratory distress, no accessory muscle use Cardiovascular: normal peripheral pulses, normal rate, regular rhythm Abdomen: normal bowel sounds, soft, non tender, no organomegaly, non distended , no mass Extremities: no cyanosis, no clubbing, no edema Microbiology Date/Time Source Procedure Growth Status 02/27/18 21:50 Nasal Nares Left MRSA Culture - Final NO METHICILLIN RESISTANT STAPH AUREUS... Complete 02/27/18 21:50 Rectum VRE Culture - Final Enterococcus Faecium - Vre Complete Laboratory Tests 03/01/18 21:00: White Blood Count 8.1, Red Blood Count 3.81L, Hemoglobin 9.6L, Hematocrit 30.4L , Mean Corpuscular Volume 80, Mean Corpuscular Hemoglobin 25.3L, Mean Corpuscular Hemoglobin Concent 31.8L, Red Cell Distribution Width 17.2H, Platelet Count 198, Mean Platelet Volume 5.7L, Neutrophils (%) (Auto) 65.8, Lymphocytes (%) (Auto) 26.2, Monocytes (%) (Auto) 6.9, Eosinophils (%) (Auto) 0.3, Basophils (%) (Auto) 0.9 Current Medications Medications (Trade) Dose Ordered Sig/Leah Route PRN Reason Start Time Stop Time Status Last Admin Dose Admin Acetaminophen (Tylenol) 500 mg Q4H PRN ORAL Mild Pain/Temp > 100.5 02/27/18 22:15 03/29/18 22:14 Folic Acid (Folate) 1 mg DAILY ORAL 02/28/18 09:00 03/30/18 08:59 03/02/18 09:07 Furosemide (Lasix) 20 mg BID ORAL 02/28/18 09:00 03/30/18 08:59 03/02/18 09:07 Lidocaine HCl (Xylocaine 1% 30ml) 30 ml NOW PRN INJ Radiology Procedure 02/28/18 10:00 03/03/18 09:59 Linezolid (Zyvox) 600 mg EVERY 12 HOURS ORAL 03/02/18 11:45 03/07/18 11:44 03/02/18 12:53 Lorazepam (Ativan) 2 mg Q6H PRN ORAL For Anxiety 02/28/18 12:30 03/07/18 12:29 Medroxyprogesterone Acetate (Provera) 10 mg DAILY ORAL 03/01/18 09:00 03/31/18 08:59 03/02/18 09:06 Propranolol HCl (Inderal) 20 mg THREE TIMES A DAY ORAL 02/27/18 22:30 03/29/18 22:29 03/02/18 12:54 Trimethoprim/ Sulfamethoxazole (Bactrim-DS) 1 tab TWICE A DAY ORAL 03/02/18 11:45 03/09/18 11:44 03/02/18 12:53 Evelio Lopes MD Mar 02, 2018 17:00
--- NOTE | 2018-03-02 17:07 | General Progress Note ---
Assessment/Plan Problem List: (1) Vaginal bleeding ICD Codes: N93.9 - Abnormal uterine and vaginal bleeding, unspecified SNOMED: 848292981, 141969603 (2) Positive blood culture ICD Codes: R78.81 - Bacteremia SNOMED: 577189454 Status: progressing Assessment/Plan check h/h decrease in bleeding pe and dvt s/p ivc filter Subjective ROS Limited/Unobtainable: Yes Allergies: Coded Allergies: NO KNOWN ALLERGIES (Verified Allergy, Unknown, 02/27/18) Objective Last 24 Hour Vital Signs Date Time Temp Pulse Resp B/P (MAP) Pulse Ox O2 Delivery O2 Flow Rate FiO2 03/02/18 17:02 80 108/73 03/02/18 16:00 97.7 80 21 108/73 (85) 98 97.7 03/02/18 12:54 75 132/61 03/02/18 12:00 98.1 80 18 117/73 (88) 99 98.1 03/02/18 09:07 92 127/75 03/02/18 08:00 97.7 92 20 127/75 (92) 98 97.7 03/02/18 04:00 98.3 90 18 98/52 (67) 96 98.3 03/02/18 00:00 97.9 84 18 99/61 (74) 97 97.9 03/01/18 20:00 98.7 85 18 99/65 (76) 98 98.7 03/01/18 17:11 84 104/67 Intake and Output 03/01/18 03/02/18 19:00 07:00 Intake Total 532.5 ml 360 ml Balance 532.5 ml 360 ml Intake Oral 450 ml IV Total 82.5 ml 360 ml # Voids 5 3 # Bowel Movements 3 1 Laboratory Tests 03/01/18 21:00: White Blood Count 8.1, Red Blood Count 3.81L, Hemoglobin 9.6L, Hematocrit 30.4L , Mean Corpuscular Volume 80, Mean Corpuscular Hemoglobin 25.3L, Mean Corpuscular Hemoglobin Concent 31.8L, Red Cell Distribution Width 17.2H, Platelet Count 198, Mean Platelet Volume 5.7L, Neutrophils (%) (Auto) 65.8, Lymphocytes (%) (Auto) 26.2, Monocytes (%) (Auto) 6.9, Eosinophils (%) (Auto) 0.3, Basophils (%) (Auto) 0.9 Height (Feet): 5 Height (Inches): 4.00 Weight (Pounds): 275 Cardiovascular: regular rhythm Respiratory/Chest: lungs clear Abdomen: soft Tory Horowitz MD Mar 02, 2018 17:07
[2018-03-02 20:00] VITALS: BP 129/80
[2018-03-03] VITALS: BP 132/75
[2018-03-03 04:00] VITALS: BP 109/57
[2018-03-03 08:00] VITALS: BP 101/60
[2018-03-03] MEDS: Propranolol 40mg tab ORAL SCH ×3 (09:00→17:25)
[2018-03-03] MEDS: Bactrim-DS 1 tab ORAL SCH ×2 (09:02→17:33)
[2018-03-03] MEDS: medroxyPROGESTERone 10mg tab ORAL SCH (09:02)
[2018-03-03 11:52] VITALS: BP 100/60
--- NOTE | 2018-03-03 13:08 | General Progress Note ---
Assessment/Plan Status: stable Assessment/Plan 1. Pulmonary embolism and deep venous thrombosis, has been on Eliquis dose recently increased --> Eliquis at this time discontinued. She has been administered vitamin K. She had a medical reception specialist bleed and therefore contraindicated --> IVC filter has been placed on 02/28/18 --> remove filter in 90 days especially after medical reception specialist bleed resolves --> hematology clinic followup for anticoagulation --> medical reception specialist clinic f/u for biopsy of endometrium 2. Anemia due to vaginal bleeding. Closely monitor. --> Hold off anitcoag --> medical reception specialist followup 3. Anemia of folic acid deficiency. --> Anemia w/u has been reviewed, will trend daily. --> Hgb goal >7 --> Pt on po folic acid 4. Hypoalbuminemia. Decrease p.o. intake. 5. Anemia due to folic acid deficiency. Closely monitor. 6. Gastroesophageal reflux disease. Continue proton pump inhibitor. 7. Dysphagia. Subjective Date patient seen: Mar 03, 2018 ROS Limited/Unobtainable: Yes Hematologic/Lymphatic: Reports: anemia Allergies: Coded Allergies: NO KNOWN ALLERGIES (Verified Allergy, Unknown, 02/27/18) All Systems: reviewed and negative except above Subjective Pt resting in bed. No acute events. Vitals are stable. No resp distress. Vaginal bleeding continues. Objective Last 24 Hour Vital Signs Date Time Temp Pulse Resp B/P (MAP) Pulse Ox O2 Delivery O2 Flow Rate FiO2 03/03/18 13:00 77 100/60 03/03/18 11:52 98.1 77 20 100/60 (73) 97 98.1 03/03/18 09:00 Room Air 03/03/18 09:00 79 101/60 03/03/18 08:00 98.6 79 20 101/60 (74) 97 98.6 03/03/18 04:00 97.7 80 17 109/57 (74) 96 97.7 03/03/18 00:00 98.0 78 19 132/75 (94) 97 98.0 03/02/18 21:00 Room Air 03/02/18 20:00 97.7 83 20 129/80 (96) 98 97.7 03/02/18 17:02 80 108/73 03/02/18 16:00 97.7 80 21 108/73 (85) 98 97.7 Intake and Output 03/02/18 03/03/18 19:00 07:00 Intake Total 610.000 ml 360 ml Balance 610.000 ml 360 ml Intake Oral 360 ml 360 ml IV Total 250.000 ml # Voids 5 3 # Bowel Movements 3 2 Height (Feet): 5 Height (Inches): 4.00 Weight (Pounds): 273 General Appearance: no apparent distress, obese EENT: PERRL/EOMI Neck: normal alignment Cardiovascular: normal peripheral pulses Respiratory/Chest: no respiratory distress Abdomen: non tender, soft Clifton Nieves MD Mar 03, 2018 13:08
[2018-03-03] MEDS ORDERED: NS 275ml ONE ×2 (14:22→14:46)
[2018-03-03] MEDS ORDERED: Tubing IV Secondary IV ONE ×2 (14:26→14:46)
[2018-03-03 16:00] VITALS: BP 98/60
--- NOTE | 2018-03-03 16:20 | Infectious Diseases Prog Note ---
"Assessment/Plan Assessment/Plan A 1. lactobacillus sepsis 2. e. coli | VRE UTI 3. s/p ivc filter placement 4. vaginal bleeding 5. Morbid obesity P 1. Continue linezolid, Bactrim for 6 days 2. will follow up cultures Subjective ROS Limited/Unobtainable: No Constitutional: Reports: no symptoms Respiratory: Reports: no symptoms Cardiovascular: Reports: no symptoms Gastrointestinal/Abdominal: Reports: no symptoms Genitourinary: Reports: vaginal bleed/discharge Musculoskeletal: Reports: no symptoms Allergies: Coded Allergies: NO KNOWN ALLERGIES (Verified Allergy, Unknown, 02/27/18) Objective Vital Signs Last 24 Hour Vital Signs Date Time Temp Pulse Resp B/P (MAP) Pulse Ox O2 Delivery O2 Flow Rate FiO2 03/03/18 16:00 97.7 86 20 98/60 (73) 95 97.7 03/03/18 13:00 77 100/60 03/03/18 11:52 98.1 77 20 100/60 (73) 97 98.1 03/03/18 09:00 Room Air 03/03/18 09:00 79 101/60 03/03/18 08:00 98.6 79 20 101/60 (74) 97 98.6 03/03/18 04:00 97.7 80 17 109/57 (74) 96 97.7 03/03/18 00:00 98.0 78 19 132/75 (94) 97 98.0 03/02/18 21:00 Room Air 03/02/18 20:00 97.7 83 20 129/80 (96) 98 97.7 03/02/18 17:02 80 108/73 Height (Feet): 5 Height (Inches): 4.00 Weight (Pounds): 273 General Appearance: no acute distress HEENT: mucous membranes moist Respiratory/Chest: lungs clear Cardiovascular: normal rate Abdomen: soft, non tender Extremities: other - non-pitting edema of legs Neurologic/Psychiatric: alert, oriented x 3, responsive Current Medications Medications (Trade) Dose Ordered Sig/Leah Route PRN Reason Start Time Stop Time Status Last Admin Dose Admin Acetaminophen (Tylenol) 500 mg Q4H PRN ORAL Mild Pain/Temp > 100.5 02/27/18 22:15 03/29/18 22:14 Folic Acid (Folate) 1 mg DAILY ORAL 02/28/18 09:00 03/30/18 08:59 03/03/18 09:02 Furosemide (Lasix) 20 mg BID ORAL 02/28/18 09:00 03/30/18 08:59 03/03/18 09:02 Linezolid (Zyvox) 600 mg EVERY 12 HOURS ORAL 03/02/18 11:45 03/07/18 11:44 03/03/18 09:02 Lorazepam (Ativan) 2 mg Q6H PRN ORAL For Anxiety 02/28/18 12:30 03/07/18 12:29 Medroxyprogesterone Acetate (Provera) 10 mg DAILY ORAL 03/01/18 09:00 03/31/18 08:59 03/03/18 09:02 Propranolol HCl (Inderal) 20 mg THREE TIMES A DAY ORAL 02/27/18 22:30 03/29/18 22:29 03/02/18 12:54 Trimethoprim/ Sulfamethoxazole (Bactrim-DS) 1 tab TWICE A DAY ORAL 03/02/18 11:45 03/09/18 11:44 03/03/18 09:02 Michael Galicia MD Mar 03, 2018 16:20"
--- NOTE | 2018-03-03 16:45 | General Progress Note ---
Assessment/Plan Problem List: (1) Vaginal bleeding ICD Codes: N93.9 - Abnormal uterine and vaginal bleeding, unspecified SNOMED: 324493847, 618662729 (2) Positive blood culture ICD Codes: R78.81 - Bacteremia SNOMED: 795731335 Status: progressing Assessment/Plan not cleared by id for dc id is recommending one more day of isolation afebrile pe and dvt s/p ivc filter Subjective ROS Limited/Unobtainable: Yes Allergies: Coded Allergies: NO KNOWN ALLERGIES (Verified Allergy, Unknown, 02/27/18) Objective Last 24 Hour Vital Signs Date Time Temp Pulse Resp B/P (MAP) Pulse Ox O2 Delivery O2 Flow Rate FiO2 03/03/18 16:00 97.7 86 20 98/60 (73) 95 97.7 03/03/18 13:00 77 100/60 03/03/18 11:52 98.1 77 20 100/60 (73) 97 98.1 03/03/18 09:00 Room Air 03/03/18 09:00 79 101/60 03/03/18 08:00 98.6 79 20 101/60 (74) 97 98.6 03/03/18 04:00 97.7 80 17 109/57 (74) 96 97.7 03/03/18 00:00 98.0 78 19 132/75 (94) 97 98.0 03/02/18 21:00 Room Air 03/02/18 20:00 97.7 83 20 129/80 (96) 98 97.7 03/02/18 17:02 80 108/73 Intake and Output 03/02/18 03/03/18 19:00 07:00 Intake Total 610.000 ml 360 ml Balance 610.000 ml 360 ml Intake Oral 360 ml 360 ml IV Total 250.000 ml # Voids 5 3 # Bowel Movements 3 2 Height (Feet): 5 Height (Inches): 4.00 Weight (Pounds): 273 Tory Horowitz MD Mar 03, 2018 16:45
--- NOTE | 2018-03-03 17:51 | Pulmonology Progress Note ---
Assessment/Plan Problems: (1) Positive blood culture (2) Vaginal bleeding Assessment/Plan ASSESSMENT: The patient is a 57-year-old female, nonsmoker, who presented recently to [facility] with altered mental status and noted to have bilateral lower extremity deep venous thrombosis and pulmonary embolism, started on Eliquis, now with vaginal bleeding. Eliquis is on hold and the patient is S/P IVC filter placement PROBLEM LIST: 1. Vaginal bleeding in the setting of anticoagulation and likely uterine fibroids, resovled with holding A/C and starting Provera 2. B DVT and PE S/P IVCF 03/01/18 3. Pulmonary hypertension secondary to above. 4. Asthma without evidence of exacerbation. 5. Fungal UTI. 6. Bacteremia 7. Left periapical pulmonary nodule. 8. Obesity. 9. Likely underlying CHUCK. 10. Multinodular goiter. 11. Fatty liver. 12. Hypertension. TREATMENT PLAN: 1. Hold anticoagulation. 2. S/P IVCF, to be removed in 2-3 months 3. F/U HEME and OB RECS ---> Continue Provera x 2 weeks, O/P EBx 4. F/U CBC, monitor H&H, transfuse as needed 5. Antibiotics per ID. 6. Follow up cultures. 7. The patient to have a sleep study as an outpatient. 8. Outpatient F/U of pulmonary nodule as previously planned Evelio Lopes M.D., F.C.C.P. Subjective Allergies: Coded Allergies: NO KNOWN ALLERGIES (Verified Allergy, Unknown, 02/27/18) Subjective AFVSS, stable on RA HH stable No cough, no SOB No further VB Objective Last 24 Hour Vital Signs Date Time Temp Pulse Resp B/P (MAP) Pulse Ox O2 Delivery O2 Flow Rate FiO2 03/03/18 17:25 86 98/60 03/03/18 16:00 97.7 86 20 98/60 (73) 95 97.7 03/03/18 13:00 77 100/60 03/03/18 11:52 98.1 77 20 100/60 (73) 97 98.1 03/03/18 09:00 Room Air 03/03/18 09:00 79 101/60 03/03/18 08:00 98.6 79 20 101/60 (74) 97 98.6 03/03/18 04:00 97.7 80 17 109/57 (74) 96 97.7 03/03/18 00:00 98.0 78 19 132/75 (94) 97 98.0 03/02/18 21:00 Room Air 03/02/18 20:00 97.7 83 20 129/80 (96) 98 97.7 Intake and Output 03/02/18 03/03/18 19:00 07:00 Intake Total 610.000 ml 360 ml Balance 610.000 ml 360 ml Intake Oral 360 ml 360 ml IV Total 250.000 ml # Voids 5 3 # Bowel Movements 3 2 General Appearance: WD/WN, no acute distress HEENT: normocephalic, atraumatic, anicteric, mucous membranes moist Respiratory/Chest: chest wall non-tender, lungs clear, normal breath sounds, no respiratory distress, no accessory muscle use Cardiovascular: normal peripheral pulses, normal rate, regular rhythm Abdomen: normal bowel sounds, soft, non tender, no organomegaly, non distended Extremities: no cyanosis, no clubbing, no edema Current Medications Medications (Trade) Dose Ordered Sig/Leah Route PRN Reason Start Time Stop Time Status Last Admin Dose Admin Acetaminophen (Tylenol) 500 mg Q4H PRN ORAL Mild Pain/Temp > 100.5 02/27/18 22:15 03/29/18 22:14 Folic Acid (Folate) 1 mg DAILY ORAL 02/28/18 09:00 03/30/18 08:59 03/03/18 09:02 Furosemide (Lasix) 20 mg BID ORAL 02/28/18 09:00 03/30/18 08:59 03/03/18 09:02 Linezolid (Zyvox) 600 mg EVERY 12 HOURS ORAL 03/02/18 11:45 03/07/18 11:44 03/03/18 09:02 Lorazepam (Ativan) 2 mg Q6H PRN ORAL For Anxiety 02/28/18 12:30 03/07/18 12:29 Medroxyprogesterone Acetate (Provera) 10 mg DAILY ORAL 03/01/18 09:00 03/31/18 08:59 03/03/18 09:02 Propranolol HCl (Inderal) 20 mg THREE TIMES A DAY ORAL 02/27/18 22:30 03/29/18 22:29 03/02/18 12:54 Trimethoprim/ Sulfamethoxazole (Bactrim-DS) 1 tab TWICE A DAY ORAL 03/02/18 11:45 03/09/18 11:44 03/03/18 17:33 Evelio Lopes MD Mar 03, 2018 17:51
[2018-03-03 20:00] VITALS: BP 105/64
--- NOTE | 2018-03-03 20:00 | General Progress Note ---
Assessment/Plan Status: stable, progressing Assessment/Plan Anxiety d/o depression encephalopathy ativan prn Subjective Date patient seen: Mar 03, 2018 Neurologic/Psychiatric: Reports: anxiety, depressed Allergies: Coded Allergies: NO KNOWN ALLERGIES (Verified Allergy, Unknown, 02/27/18) Objective Last 24 Hour Vital Signs Date Time Temp Pulse Resp B/P (MAP) Pulse Ox O2 Delivery O2 Flow Rate FiO2 03/03/18 17:25 86 98/60 03/03/18 16:00 97.7 86 20 98/60 (73) 95 97.7 03/03/18 13:00 77 100/60 03/03/18 11:52 98.1 77 20 100/60 (73) 97 98.1 03/03/18 09:00 Room Air 03/03/18 09:00 79 101/60 03/03/18 08:00 98.6 79 20 101/60 (74) 97 98.6 03/03/18 04:00 97.7 80 17 109/57 (74) 96 97.7 03/03/18 00:00 98.0 78 19 132/75 (94) 97 98.0 03/02/18 21:00 Room Air 03/02/18 20:00 97.7 83 20 129/80 (96) 98 97.7 Intake and Output 03/02/18 03/03/18 19:00 07:00 Intake Total 610.000 ml 360 ml Balance 610.000 ml 360 ml Intake Oral 360 ml 360 ml IV Total 250.000 ml # Voids 5 3 # Bowel Movements 3 2 Height (Feet): 5 Height (Inches): 4.00 Weight (Pounds): 273 General Appearance: no apparent distress, alert, confused - aaox2 Neurologic: depressed affect Nida Santiago MD Mar 03, 2018 20:00
--- NOTE | 2018-03-03 20:02 | Geriatric Progress Note ---
Assessment/Plan Assessment/Plan Anxiety d/o depression encephalopathy ativan prn Subjective Interval Events 02/28/18 Mood/Memory: Reports: prior hx, anxiety, depressed feelings, emotional problems Geriatric Geriatric Last 24 Hour Vital Signs Date Time Temp Pulse Resp B/P (MAP) Pulse Ox O2 Delivery O2 Flow Rate FiO2 03/03/18 17:25 86 98/60 03/03/18 16:00 97.7 86 20 98/60 (73) 95 97.7 03/03/18 13:00 77 100/60 03/03/18 11:52 98.1 77 20 100/60 (73) 97 98.1 03/03/18 09:00 Room Air 03/03/18 09:00 79 101/60 03/03/18 08:00 98.6 79 20 101/60 (74) 97 98.6 03/03/18 04:00 97.7 80 17 109/57 (74) 96 97.7 03/03/18 00:00 98.0 78 19 132/75 (94) 97 98.0 03/02/18 21:00 Room Air Intake and Output 03/02/18 03/03/18 19:00 07:00 Intake Total 610.000 ml 360 ml Balance 610.000 ml 360 ml Intake Oral 360 ml 360 ml IV Total 250.000 ml # Voids 5 3 # Bowel Movements 3 2 Current Medications Medications (Trade) Dose Ordered Sig/Leah Route PRN Reason Start Time Stop Time Status Last Admin Dose Admin Acetaminophen (Tylenol) 500 mg Q4H PRN ORAL Mild Pain/Temp > 100.5 02/27/18 22:15 03/29/18 22:14 Folic Acid (Folate) 1 mg DAILY ORAL 02/28/18 09:00 03/30/18 08:59 03/03/18 09:02 Furosemide (Lasix) 20 mg BID ORAL 02/28/18 09:00 03/30/18 08:59 03/03/18 09:02 Linezolid (Zyvox) 600 mg EVERY 12 HOURS ORAL 03/02/18 11:45 03/07/18 11:44 03/03/18 09:02 Lorazepam (Ativan) 2 mg Q6H PRN ORAL For Anxiety 02/28/18 12:30 03/07/18 12:29 Medroxyprogesterone Acetate (Provera) 10 mg DAILY ORAL 03/01/18 09:00 03/31/18 08:59 03/03/18 09:02 Propranolol HCl (Inderal) 20 mg THREE TIMES A DAY ORAL 02/27/18 22:30 03/29/18 22:29 03/02/18 12:54 Trimethoprim/ Sulfamethoxazole (Bactrim-DS) 1 tab TWICE A DAY ORAL 03/02/18 11:45 03/09/18 11:44 03/03/18 17:33 Height (Feet): 5 Height (Inches): 4.00 Weight (Pounds): 273 General Appearance: alert Psychiatric Orientation: disoriented Affect: flat Insight: poor Nida Santiago MD Mar 03, 2018 20:02
--- NOTE | 2018-03-03 20:02 | Geriatric Progress Note ---
Assessment/Plan Assessment/Plan Anxiety d/o depression encephalopathy ativan prn Subjective Interval Events 03/01/18 Mood/Memory: Reports: prior hx, anxiety, depressed feelings, emotional problems Geriatric Geriatric Last 24 Hour Vital Signs Date Time Temp Pulse Resp B/P (MAP) Pulse Ox O2 Delivery O2 Flow Rate FiO2 03/03/18 17:25 86 98/60 03/03/18 16:00 97.7 86 20 98/60 (73) 95 97.7 03/03/18 13:00 77 100/60 03/03/18 11:52 98.1 77 20 100/60 (73) 97 98.1 03/03/18 09:00 Room Air 03/03/18 09:00 79 101/60 03/03/18 08:00 98.6 79 20 101/60 (74) 97 98.6 03/03/18 04:00 97.7 80 17 109/57 (74) 96 97.7 03/03/18 00:00 98.0 78 19 132/75 (94) 97 98.0 03/02/18 21:00 Room Air Intake and Output 03/02/18 03/03/18 19:00 07:00 Intake Total 610.000 ml 360 ml Balance 610.000 ml 360 ml Intake Oral 360 ml 360 ml IV Total 250.000 ml # Voids 5 3 # Bowel Movements 3 2 Current Medications Medications (Trade) Dose Ordered Sig/Leah Route PRN Reason Start Time Stop Time Status Last Admin Dose Admin Acetaminophen (Tylenol) 500 mg Q4H PRN ORAL Mild Pain/Temp > 100.5 02/27/18 22:15 03/29/18 22:14 Folic Acid (Folate) 1 mg DAILY ORAL 02/28/18 09:00 03/30/18 08:59 03/03/18 09:02 Furosemide (Lasix) 20 mg BID ORAL 02/28/18 09:00 03/30/18 08:59 03/03/18 09:02 Linezolid (Zyvox) 600 mg EVERY 12 HOURS ORAL 03/02/18 11:45 03/07/18 11:44 03/03/18 09:02 Lorazepam (Ativan) 2 mg Q6H PRN ORAL For Anxiety 02/28/18 12:30 03/07/18 12:29 Medroxyprogesterone Acetate (Provera) 10 mg DAILY ORAL 03/01/18 09:00 03/31/18 08:59 03/03/18 09:02 Propranolol HCl (Inderal) 20 mg THREE TIMES A DAY ORAL 02/27/18 22:30 03/29/18 22:29 03/02/18 12:54 Trimethoprim/ Sulfamethoxazole (Bactrim-DS) 1 tab TWICE A DAY ORAL 03/02/18 11:45 03/09/18 11:44 03/03/18 17:33 Height (Feet): 5 Height (Inches): 4.00 Weight (Pounds): 273 General Appearance: alert Neurologic: alert, responsive Nida Santiago MD Mar 03, 2018 20:02
[2018-03-04] VITALS: BP 99/67
[2018-03-04 04:36] VITALS: BP 163/59
[2018-03-04 08:00] VITALS: BP 112/72
[2018-03-04] MEDS ORDERED: ZYVOX600 MG ORAL (08:09)
[2018-03-04] MEDS ORDERED: BACTRIM DS TAB1 EAC1 ORAL (08:12)
[2018-03-04] MEDS: medroxyPROGESTERone 10mg tab ORAL SCH (08:54)
[2018-03-04] MEDS: Propranolol 40mg tab ORAL SCH ×2 (08:54→13:00)
[2018-03-04] MEDS: Bactrim-DS 1 tab ORAL SCH (08:54)
--- NOTE | 2018-03-04 10:50 | General Progress Note ---
Assessment/Plan Status: stable Assessment/Plan 1. Pulmonary embolism and deep venous thrombosis, has been on Eliquis dose recently increased --> Eliquis at this time discontinued. She has been administered vitamin K. 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 Anemia due to vaginal bleeding. Closely monitor. --> Hold off anitcoag --> log chipper operator followup 3. Anemia of folic acid deficiency. --> Anemia w/u has been reviewed, will trend daily. --> Hgb goal >7 --> Pt on po folic acid 4. Hypoalbuminemia. Decrease p.o. intake. 5. Anemia due to folic acid deficiency. Closely monitor. 6. Gastroesophageal reflux disease. Continue proton pump inhibitor. 7. Dysphagia. Subjective Date patient seen: Mar 04, 2018 ROS Limited/Unobtainable: Yes Hematologic/Lymphatic: Reports: anemia Allergies: Coded Allergies: NO KNOWN ALLERGIES (Verified Allergy, Unknown, 02/27/18) All Systems: reviewed and negative except above Subjective Pt resting in bed. No acute events. DC planning. Objective Last 24 Hour Vital Signs Date Time Temp Pulse Resp B/P (MAP) Pulse Ox O2 Delivery O2 Flow Rate FiO2 03/04/18 08:54 94 112/72 03/04/18 08:00 98.0 94 20 112/72 (85) 98 98.0 03/04/18 04:36 97.5 61 20 163/59 (93) 98 97.5 03/04/18 00:00 97.9 81 20 99/67 (78) 97 97.9 03/03/18 21:00 Room Air 03/03/18 20:00 97.3 79 18 105/64 (78) 96 97.3 03/03/18 17:25 86 98/60 03/03/18 16:00 97.7 86 20 98/60 (73) 95 97.7 03/03/18 13:00 77 100/60 03/03/18 11:52 98.1 77 20 100/60 (73) 97 98.1 Intake and Output 03/03/18 03/04/18 19:00 07:00 Intake Total 360 ml 120 ml Balance 360 ml 120 ml Intake Oral 360 ml 120 ml # Voids 4 2 # Bowel Movements 2 1 Height (Feet): 5 Height (Inches): 4.00 Weight (Pounds): 272 General Appearance: no apparent distress EENT: PERRL/EOMI Neck: normal alignment Cardiovascular: normal peripheral pulses Respiratory/Chest: no respiratory distress Abdomen: soft Clifton Nieves MD Mar 04, 2018 10:50
[2018-03-04 12:00] VITALS: BP 94/54
--- NOTE | 2018-03-04 13:10 | General Progress Note ---
Assessment/Plan Problem List: (1) Vaginal bleeding ICD Codes: N93.9 - Abnormal uterine and vaginal bleeding, unspecified SNOMED: 085654019, [id number] (2) Positive blood culture ICD Codes: R78.81 - Bacteremia SNOMED: 314843676 Status: progressing Assessment/Plan cleared by id so dc patient back to snf afebrile no vaginal bleeding pe and dvt s/p ivc filter Subjective ROS Limited/Unobtainable: Yes Allergies: Coded Allergies: NO KNOWN ALLERGIES (Verified Allergy, Unknown, 02/27/18) Objective Last 24 Hour Vital Signs Date Time Temp Pulse Resp B/P (MAP) Pulse Ox O2 Delivery O2 Flow Rate FiO2 03/04/18 12:00 99.1 79 19 94/54 (67) 99 99.1 03/04/18 09:00 Room Air 03/04/18 08:54 94 112/72 03/04/18 08:00 98.0 94 20 112/72 (85) 98 98.0 03/04/18 04:36 97.5 61 20 163/59 (93) 98 97.5 03/04/18 00:00 97.9 81 20 99/67 (78) 97 97.9 03/03/18 21:00 Room Air 03/03/18 20:00 97.3 79 18 105/64 (78) 96 97.3 03/03/18 17:25 86 98/60 03/03/18 16:00 97.7 86 20 98/60 (73) 95 97.7 Intake and Output 03/03/18 03/04/18 19:00 07:00 Intake Total 360 ml 120 ml Balance 360 ml 120 ml Intake Oral 360 ml 120 ml # Voids 4 2 # Bowel Movements 2 1 Height (Feet): 5 Height (Inches): 4.00 Weight (Pounds): 272 Tory Horowitz MD Mar 04, 2018 13:10
--- NOTE | 2018-03-04 14:57 | Pulmonology Progress Note ---
Assessment/Plan Assessment/Plan PROBLEM LIST: 1. Vaginal bleeding in the setting of anticoagulation and likely uterine fibroids, resovled with holding A/C and starting Provera 2. B DVT and PE S/P IVCF 03/01/18 3. Pulmonary hypertension secondary to above. 4. Asthma without evidence of exacerbation. 5. Fungal UTI. 6. Bacteremia 7. Left periapical pulmonary nodule. 8. HTN 9. Likely underlying CHUCK. 10. Multinodular goiter. TREATMENT PLAN: 1. Hold anticoagulation for now, resume when stable and will toelrate 2. S/P IVCF, to be removed in 2-3 months 3. F/U HEME and OB RECS ---> Continue Provera x 2 weeks, O/P EBx 4. F/U CBC, monitor H&H, transfuse as needed 5. Antibiotics per ID. 6. Follow up cultures. 7. The patient to have a sleep study as an outpatient. 8. Outpatient F/U of pulmonary nodule as previously planned Subjective Constitutional: Reports: no symptoms HEENT: Repors: no symptoms Allergies: Coded Allergies: NO KNOWN ALLERGIES (Verified Allergy, Unknown, 02/27/18) Subjective doign well for dc this afternoon no cp nv oe bleeding toerlating po Objective Last 24 Hour Vital Signs Date Time Temp Pulse Resp B/P (MAP) Pulse Ox O2 Delivery O2 Flow Rate FiO2 03/04/18 12:00 99.1 79 19 94/54 (67) 99 99.1 03/04/18 09:00 Room Air 03/04/18 08:54 94 112/72 03/04/18 08:00 98.0 94 20 112/72 (85) 98 98.0 03/04/18 04:36 97.5 61 20 163/59 (93) 98 97.5 03/04/18 00:00 97.9 81 20 99/67 (78) 97 97.9 03/03/18 21:00 Room Air 03/03/18 20:00 97.3 79 18 105/64 (78) 96 97.3 03/03/18 17:25 86 98/60 03/03/18 16:00 97.7 86 20 98/60 (73) 95 97.7 Intake and Output 03/03/18 03/04/18 19:00 07:00 Intake Total 360 ml 120 ml Balance 360 ml 120 ml Intake Oral 360 ml 120 ml # Voids 4 2 # Bowel Movements 2 1 General Appearance: WD/WN Respiratory/Chest: lungs clear, normal breath sounds Cardiovascular: normal rate, regular rhythm Extremities: no cyanosis Skin: no rash Neurologic/Psychiatric: alert, oriented x 3 Lymphatic: no neck adenopathy Current Medications Medications (Trade) Dose Ordered Sig/Leah Route PRN Reason Start Time Stop Time Status Last Admin Dose Admin Acetaminophen (Tylenol) 500 mg Q4H PRN ORAL Mild Pain/Temp > 100.5 02/27/18 22:15 03/29/18 22:14 Folic Acid (Folate) 1 mg DAILY ORAL 02/28/18 09:00 03/30/18 08:59 03/04/18 08:54 Furosemide (Lasix) 20 mg BID ORAL 02/28/18 09:00 03/30/18 08:59 03/04/18 08:54 Linezolid (Zyvox) 600 mg EVERY 12 HOURS ORAL 03/02/18 11:45 03/07/18 11:44 03/04/18 08:54 Lorazepam (Ativan) 2 mg Q6H PRN ORAL For Anxiety 02/28/18 12:30 03/07/18 12:29 Medroxyprogesterone Acetate (Provera) 10 mg DAILY ORAL 03/01/18 09:00 03/18/18 08:59 03/04/18 08:54 Propranolol HCl (Inderal) 20 mg THREE TIMES A DAY ORAL 02/27/18 22:30 03/29/18 22:29 03/04/18 08:54 Trimethoprim/ Sulfamethoxazole (Bactrim-DS) 1 tab TWICE A DAY ORAL 03/02/18 11:45 03/09/18 11:44 03/04/18 08:54 Lula Espino DO Mar 04, 2018 14:56
--- NOTE | 2018-03-07 10:47 | Discharge Summary ---
Discharge Summary Discharge Summary _ DATE OF ADMISSION: 02/27/2018 DATE OF DISCHARGE: 03/04/2018 REASON FOR ADMISSION: 57 years old female with history of hypertension, asthma, bilateral PE, DVT , multinodular goiter , obesity, presented to [facility] Department from the prison facility for evaluation of vaginal bleeding. Patient recently had increased dose of Eliquis for diagnosed bilateral PE, while being hospitalized at [facility]. Patient also had a recent history of lactobacillus in blood. Upon evaluation vital signs were stable, patient was afebrile, no leukocytosis. Hemoglobin 11.2, hematocrit 33.5 ,INR 1.5 Urinalysis was consistent with UTI and hematuria. 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 Patient admitted with diagnosis of vaginal bleeding in setting of anticoagulation, bilateral PE and DVT , recent Lactobacillus bacteremia, urinary tract infection CONSULTANTS: pulmonary Dr. Lopes ID specialist dr Ames day care supervisor/oncologist Dr. Nieves SCREEN CLEANER Dr. Bettencourt psychiatrist [facility] COURSE: Patient admitted. Anticoagulation was stopped. Patient was scheduled for IVC filter. Hemoglobin and hematocrit were closely monitored Anemia workup was initiated. Patient started on empiric antibiotic under ID specialist recommendations, who clsoely followed. Patient subsequently undergone IVC filter placement on 02/28. Patient undergone administration of vitamin K prior to the procedure. Anemia workup was consistent with folate deficiency and was also was due to vaginal bleeding. Patient started on folic acid supplement . Hemoglobin and hematocrit were closely monitored with goal to keep hemoglobin above 7 Pelvic, transvaginal ultrasound revealed multiply uterine masses, likely fibroids. Possible moderate thickening of endometrium. SCREEN CLEANER specialist seen and elated the patient. Patient was started on Provera. SCREEN CLEANER recommended Provera for bleeding symptoms for 2 weeks. Due to findings of probable endometrium thickening recommended endometrial biopsy as outpatient. Per day care supervisor, remove IVC filter in 90 days . Patient to follow-up with the hematology clinic for anticoagulation as outpatient. GI prophylaxis provided. ID specialist closely followed. Urine culture revealed Escherichia coli ESBL and VRE, blood culture were negative. Continue antibiotic at the prison facility for amount of time as specified by ID specialist to complete the course. No leukocytosis , no fevers. Supplemental oxygen and pulmonary toilet were o board as needed, no evidence of asthma exacerbation. Recommended outpatient on sleep study Outpatient follow-up on pulmonary nodule as planned. psychiatrist s een and evaluated the patient. Psychiatrist diagnosed patient with anxiety, depression, encephalopathy. Anxiolytics were on board as needed. Patient stabilized. No further bleeding, Stable hemoglobin and hematocrit. Patient was ready for transfer to the prison facility for further management. FINAL DIAGNOSES: Vaginal bleeding in setting of anticoagulation Recent history of Lactobacillus sepsis Escherichia coli ESBL and VRE urinary tract infection Anemia due to vaginal bleeding Anemia of folate deficiency Status post IVC filter 02/28 Recent bilateral PE and DVT Obesity Asthma Likely obstructive sleep apnea Multinodular goiter Hypertension Fatty liver Left apical pulmonary nodule Multinodular goiter Multiply uterine masses, likely fibroids Anxiety Depression Encephalopathy DISCHARGE MEDICATIONS: See Medication Reconciliation list. DISCHARGE INSTRUCTIONS: Patient was discharged to prison facility. Follow up with medical doctor at the facility. Continue Provera for 2 weeks. Follow-up as outpatient with the day care supervisor for anticoagulation after on removal of IVC filter ; follow-up with the SCREEN CLEANER as outpatient for endometrial biopsy. Outpatient sleep study. Outpatient follow-up for pulmonary nodule. I have been assigned to dictate discharge summary for this account. I was not involved in the patient's management. Priya Jimenez NP Mar 07, 2018 10:47
== END 2018-03-04 15:30 | DRG 853 ==
LOC: EDBD 14:05 → EMR 16:00 → 4W 17:31 → EDBEDREQ 18:44
PROC: 06H03DZ Insertion of Intraluminal Device into Inferior Vena Cava, Percutaneous Approach (ICD-10-PCS; principal; 2018-02-28)
DX: A41.89 Other specified sepsis (principal); I26.99 Other pulmonary embolism without acute cor pulmonale; G93.40 Encephalopathy, unspecified; I82.403 Acute embolism and thrombosis of unspecified deep veins of lower extremity, bilateral; N39.0 Urinary tract infection, site not specified; N93.9 Abnormal uterine and vaginal bleeding, unspecified; I10 Essential (primary) hypertension; K21.9 Gastro-esophageal reflux disease without esophagitis; Z87.891 Personal history of nicotine dependence; D50.0 Iron deficiency anemia secondary to blood loss (chronic); E88.09 Other disorders of plasma-protein metabolism, not elsewhere classified; R13.10 Dysphagia, unspecified; E66.9 Obesity, unspecified; I27.20 Pulmonary hypertension, unspecified; K76.0 Fatty (change of) liver, not elsewhere classified; J45.909 Unspecified asthma, uncomplicated; G47.33 Obstructive sleep apnea (adult) (pediatric); E04.2 Nontoxic multinodular goiter; F41.9 Anxiety disorder, unspecified; F32.9 Major depressive disorder, single episode, unspecified; D52.9 Folate deficiency anemia, unspecified; E66.01 Morbid (severe) obesity due to excess calories; B96.20 Unspecified Escherichia coli [E. coli] as the cause of diseases classified elsewhere; B95.2 Enterococcus as the cause of diseases classified elsewhere; Z16.12 Extended spectrum beta lactamase (ESBL) resistance; Z16.22 Resistance to vancomycin related antibiotics; K80.20 Calculus of gallbladder without cholecystitis without obstruction; T45.515A Adverse effect of anticoagulants, initial encounter
CPT/HCPCS: 36415; 74176; 76830; 76856; 76937; 80053; 81003; 82378; 82607; 82728; 82746; 83001; 83002; 83010; 83090; 83540; 83550; 83615; 83690; 84443; 85007; 85025; 85044; 85060; 85384; 85610; 85730; 87040; 87081; 87086; 87181; 99285